=== PATIENT | female | born 1980 | race African-American/Black ===

== ENCOUNTER 2017-02-12 23:18 | Inpatient (IN) | payer OTHER ==
[2017-02-13 00:11] LABS: Basophils % (Auto) 0.3 % (0.0-1.8); Eosinophils % (Auto) 1.8 % (0.0-4.3); Hematocrit 34.9 % (30.3-42.9); Hemoglobin 11.7 gm/dl (10.1-14.3); Mean Corpuscular HGB Conc 34 % (30-34); Mean Corpuscular Hemoglobin 32 pg (28-32); Mean Corpuscular Volume 96 fl (79-97); Platelet Count 201 K/mm3 (140-440); Red Blood Count 3.65 M/mm3 (3.65-5.03); Red Cell Distribution Width 12.8 % (13.2-15.2); White Blood Count 11.7 K/mm3 (4.5-11.0)
[2017-02-13] MEDS ORDERED: ePHEDrine SULFATE IV PRN (00:27)
[2017-02-13] MEDS ORDERED: SUBLIMAZE IV PRN (00:27)
[2017-02-13] MEDS ORDERED: BRETHINE IVP PRN (00:27)
[2017-02-13] MEDS ORDERED: POLYCILLIN/NS 2 GM/100 ML 2 GM/100 ML BAG IV ONE (00:27)
[2017-02-13] MEDS ORDERED: XYLOCAINE 2% INFILTRATI ONE ×3 (00:27→16:41)
[2017-02-13] MEDS ORDERED: NARCAN 0.4 MG/1 ML IV PRN (00:27)
[2017-02-13] MEDS ORDERED: MINERAL OIL PO PRN (00:27)
[2017-02-13] MEDS ORDERED: D50W (25GM) Syringe IV PRN (00:27)
[2017-02-13] MEDS ORDERED: BRETHINE SUB-Q PRN (00:27)
[2017-02-13] MEDS ORDERED: ZOFRAN IV PRN ×2 (00:27→03:48)
[2017-02-13] MEDS ORDERED: STADOL IV PRN (00:27)
--- NOTE | 2017-02-13 00:37 | History and Physical Report ---
History of Present Illness Date of examination: 02/13/17 Date of admission: 02/12/17 23:27 Chief complaint: SROM clear fluid History of present illness: Pt is a 36 yo AF EDC 03/03/17; EGA 37 3/7 weeks presents to L&D complaining of SROM clear fluid @ 2230 followed by irregular contractions. She received care at [facility] Inpatient since 12 weeks, and course was significant for GDM for which she takes Glyburide 5mg BID. records are available but GBS is unknown. Past History Past Medical History: diabetes (GDM) Past Surgical History: other (eyes and nose) Family/Genetic History: diabetes, stroke, cancer Social history: no significant social history, - Obstetrical History Expected Date of Delivery: 03/03/17 Actual Gestation: 37 Week(s) 3 Day(s) : 3 Medications and Allergies Allergies Allergy/AdvReac Type Severity Reaction Status Date / Time No Known Allergies Allergy Verified 02/12/17 23:20 Home Medications Medication Instructions Recorded Confirmed Last Taken Type No Known Home Medications [No 02/13/17 02/13/17 Unknown History Reported Home Medications] Review of Systems All systems: negative - Vital Signs Vital signs: Vital Signs Pulse BP 113 H 140/75 02/12/17 23:38 02/12/17 23:38 Temp Pulse Resp BP Pulse Ox 97.7 F 109 H 13 125/73 97 02/12/17 23:41 02/13/17 00:30 02/12/17 23:41 02/13/17 00:09 02/13/17 00:30 - Physical Exam Breasts: Positive: deferred Cardiovascular: Regular rate Lungs: Positive: Clear to auscultation Abdomen: Positive: normal appearance Genitourinary (Female): Positive: normal external genitalia Vagina: Positive: normal moisture Uterus: Positive: enlarged Extremities: Positive: normal - Obstetrical FHR: category 1 Uterine Contraction Monitor Mode: External Cervical Dilatation: 3 Cervical Effacement Percentage: 70 station: -1 Uterine Contraction Pattern: Irregular Uterine Tone Measurement Phase: Contraction Uterine Contraction Intensity: Moderate Results Result Diagrams: 02/13/17 03:17 Abnormal lab results 02/12/17 02/12/17 Range/Units 23:50 23:56 WBC 11.7 H (4.5-11.0) K/mm3 RDW 12.8 L (13.2-15.2) % Dixon % (Auto) 8.1 H (0.0-7.3) % Dixon # 0.9 H (0.0-0.8) K/mm3 Seg Neutrophils % 70.9 H (40.0-70.0) % Seg Neutrophils # 8.3 H (1.8-7.7) K/mm3 POC Glucose 217 H (70-105) All other labs normal. Assessment and Plan - Patient Problems (1) 37 weeks gestation of Onset Date: 02/13/17 Current Visit: Yes Status: Acute Plan to address problem: A: IUP @ 37 3/7 weeks in labor Gestational Diabetes Mellitus - controlled with Glyburide 5mg BID P: Admit to L&D for expectant vaginal delivery Monitor BS's (2) GDM (gestational diabetes mellitus) Onset Date: 02/13/17 Current Visit: Yes Status: Acute Qualifiers: Gestational diabetes mellitus control: oral hypoglycemic-controlled Trimester: third trimester Qualified Code(s): O24.415 - Gestational diabetes mellitus in , controlled by oral hypoglycemic drugs (3) GDM (gestational diabetes mellitus), class A1 Current Visit: Yes Status: Acute
[2017-02-13] MEDS ORDERED: PITOCin/NS 30 UNIT/500ML 30 UNITS/500 ML BAG IV SCH ×2 (01:00)
[2017-02-13] MEDS ORDERED: LACTATED RINGERS 1,000 ML IV SCH (01:00)
[2017-02-13] MEDS ORDERED: NARCAN 2 MG/2 ML ONE (02:39)
[2017-02-13] MEDS: PITOCin/NS 20 UNIT/1000ML DRIP 20 UNITS/1,000 ML BAG IV SCH ×2 (02:51→03:55)
[2017-02-13] MEDS ORDERED: METHERGINE IM ONE (02:54)
[2017-02-13] MEDS ORDERED: CYTOTEC ONE (03:11)
[2017-02-13] MEDS ORDERED: HEMABATE IM ONE (03:18)
[2017-02-13 03:22] LABS: ISTAT Base Excess -14; ISTAT HCO3 19.5; ISTAT PH 6.893 (7.35-7.45); ISTAT PO2 12 (80-105); ISTAT SO2 5; ISTAT TCO2 23
[2017-02-13] MEDS ORDERED: PEPCID IV ONE ×2 (03:27→06:00)
[2017-02-13] MEDS ORDERED: REGLAN ONE (03:27)
[2017-02-13] MEDS ORDERED: BICITRA ONE (03:27)
[2017-02-13 03:34] LABS: Hematocrit 27.8 % (30.3-42.9); Hemoglobin 9.3 gm/dl (10.1-14.3)
--- NOTE | 2017-02-13 03:39 | Procedure Note ---
OB Delivery Note - Delivery Date of Delivery: 02/13/17 Surgeon: NATALIE HAN Estimated blood loss: other (800ml) - Vaginal Delivery presentation: vertex Delivery position: OA Intrapartum events: precipitous labor- <3hr, extend. bradycardia Delivery induction: none Delivery augmentation: rupture of membranes Delivery monitor: external FHT, external uterine Route of delivery: Delivery placenta: expressed, manual Delivery cord: 3 umbilical vessels Episiotomy: midline Delivery laceration: 2nd degree (perineal) Delivery repair: vicryl Anesthesia: local Delivery comments: delivered TORY, cord clamped and cut, and infant handed to awaiting Peds/ RT. Cord blood and cord gas obtained. No vaginal lacerations noted.. Bimanual massage performed followed IM Methergine, PV Cytotec 800mcg and IM Hemabate to achieve hemostasis. Lisa catheter and vaginal pack also placed, and STAT H/H sent. - A at 1 minute: 6 at 5 minutes: 8 Infant Gender: Male (3208gms)
[2017-02-13] MEDS ORDERED: PHENERGAN PO PRN (03:48)
[2017-02-13] MEDS ORDERED: TYLENOL PO PRN (03:48)
[2017-02-13] MEDS ORDERED: PHENERGAN PR PRN (03:48)
[2017-02-13] MEDS ORDERED: MILK OF MAGNESIA PO PRN (03:48)
[2017-02-13] MEDS ORDERED: DULCOLAX PR PRN (03:48)
[2017-02-13] MEDS ORDERED: BENADRYL PO PRN (03:48)
[2017-02-13] MEDS ORDERED: LANSINOH TP PRN (03:48)
[2017-02-13] MEDS ORDERED: TUCKS PAD TP PRN (03:48)
[2017-02-13] MEDS ORDERED: NORCO 5/325 PO PRN (03:54)
[2017-02-13] MEDS ORDERED: SODIUM CHLORIDE FLUSH SYRINGE 10 ML IV PRN ×2 (04:00→07:50)
[2017-02-13] MEDS ORDERED: NACL 0.9% 500 ML 500 ML IV ONE ×5 (04:02→11:00)
[2017-02-13] MEDS ORDERED: TYLENOL PO ONE (04:04)
[2017-02-13] MEDS ORDERED: BENADRYL IV ONE (04:04)
[2017-02-13] MEDS ORDERED: POLYCILLIN/NS 1 GM/50 ML 1 GM/50 ML BAG IV SCH (05:00)
[2017-02-13 05:14] LABS: Hematocrit 20.4 % (30.3-42.9); Hemoglobin 6.7 gm/dl (10.1-14.3)
[2017-02-13] MEDS ORDERED: NACL 0.9% 1000 ML 1,000 ML ONE ×2 (05:19→09:03)
[2017-02-13 05:25] LABS: Fibrinogen > 1500 mg/dl (211-480); INR > 17.67 (0.87-1.13); Partial Thromboplastin Time 92.6 Sec. (24.2-36.6)
[2017-02-13] MEDS ORDERED: LEVOPHED DRIP 4 MG/NS 250 ML 4 MG/250 ML BAG IV ONE (05:26)
[2017-02-13 05:33] LABS: ISTAT Base Excess < -30; ISTAT HCO3 3.3; ISTAT PCO2 21.8 (35-45); ISTAT PH 6.783 (7.35-7.45); ISTAT PO2 267 (80-105); ISTAT SO2 99; ISTAT TCO2 < 5
[2017-02-13] MEDS ORDERED: WATER FOR IRRIG STERILE IR ONE (05:35)
[2017-02-13] MEDS ORDERED: NACL 0.9% IR ONE (05:35)
[2017-02-13] MEDS ORDERED: AMIDATE IV ONE (05:36)
[2017-02-13] MEDS ORDERED: QUELICIN ONE (05:36)
[2017-02-13] MEDS ORDERED: ANCEF ONE ×2 (05:40→05:41)
[2017-02-13] MEDS ORDERED: ZEMURON IV ONE (05:40)
[2017-02-13] MEDS ORDERED: VERSED ONE (05:50)
[2017-02-13] MEDS ORDERED: REGLAN IV NR (06:00)
[2017-02-13] MEDS ORDERED: BICITRA PO ONE (06:00)
[2017-02-13] MEDS ORDERED: CYTOTEC PR ONE (06:00)
[2017-02-13] MEDS ORDERED: ePHEDrine SULFATE ONE (06:02)
[2017-02-13] MEDS ORDERED: INTROPIN DRIP 800 MG/D5W 250 ML 800 MG/250 ML BAG IV ONE (06:11)
[2017-02-13] MEDS ORDERED: NACL 0.9% 1000 ML 2,000 ML ONE (06:37)
--- NOTE | 2017-02-13 06:46 | Operative Report ---
Operative Report Operative Report: Date of procedure: 02/13/2017 Pre-operative diagnosis: 1. Status post normal spontaneous vaginal delivery 2. hemorrhage 3. Hemovolumic shock 4. Acute respiratory failure Post-operative diagnosis: Same Procedure name(s): Total abdominal hysterectomy with left salpingo-oophorectomy Surgeon: Carlos Gupta MD Polish Compounder: None Anesthesia: Gen. endotracheal intubation by Dr. Degroot EBL: 200 mL's during the surgery but approximately 2000 mls total blood loss Findings: An enlarged uterus with a large left ovarian mass. Normal right tube and ovary. Procedure: After the patient was first correctly identified and after general anesthesia was administered she was prepped and draped in usual in the usual sterile fashion and placed in the dorsolithotomy position. The skin knife was used to make a transverse skin incision. The incision was extended down to the layer of the fascia which was nicked in the midline and extended laterally using Bovie cautery. The rectus muscles were dissected off the rectus fascia both superiorly and inferiorly, the rectus bellies in the midline and the peritoneum was entered under direct visualization. Exploration of the pelvic organs found the uterus to be enlarged and the left ovary was also enlarged. The right ovary was normal, and the tubes were normal bilaterally. Next the bowels were packed back and the round ligaments were grasped clamped cut and suture ligated. The left infundibulopelvic ligament was doubly clamped cut and suture ligated, thus freeing the left enlarged ovary from the left pelvic sidewall. The right round ligament was grasped clamped cut and suture ligated, and the right utero-ovarian ligaments were doubly clamped cut and suture ligated thus freeing the right ovary from the right uterine sidewall. The uterine vessels were then skeletonized bilaterally, and the bladder flap was taken down anteriorly. The uterine vessels were then doubly clamped cut and suture ligated bilaterally, and the cardinal ligaments were sequentially clamped cut and suture ligated down to the level of the uterosacral ligaments. The cervix was then amputated from the vaginal cuff and the specimen was handed off the surgical field. The vaginal cuff was then made hemostatic using several sutures of 0 Vicryl suture in a [id number] configuration. After good hemostasis was assured copious amounts of irrigation was then performed. The Tisseel sealant was then sprayed across the vaginal cuff and the superior pedicles bilaterally and after excellent hemostasis was assured the procedure was considered complete. All instruments removed from abdomen, and the peritoneum was closed using 0 Vicryl suture in a running interlocking fashion and the rectus muscles were also loosely re-approximated using 0 Vicryl suture in a [id number] configuration. The fascia was then re-approximated using # 1 Vicryl suture in a running interlocking fashion, the subcutaneous layer made hemostatic using Bovie cautery and the skin edges re-approximated using sofia. Patient tolerated the procedure well was transported to ICU in stable condition.
[2017-02-13] MEDS ORDERED: NEO SYNEPHRINE ONE (06:58)
[2017-02-13] MEDS ORDERED: PERCOCET 5/325 PO PRN (07:50)
[2017-02-13] MEDS ORDERED: ANCEF/NS 1 GM/50 ML 1 GM/50 ML BAG IV SCH (07:50)
[2017-02-13] MEDS ORDERED: NACL 0.9% 500 ML 500 ML IV NR ×2 (08:00→15:14)
--- NOTE | 2017-02-13 08:02 | Anesthesia Consultation ---
Anesthesia Consult and Med Hx Date of service: 02/13/17 - Airway Anesthetic Teeth Evaluation: Good ROM Head & Neck: Adequate Mental/Hyoid Distance: Adequate Mallampati Class: Class II Intubation Access Assessment: Probably Good - Pulmonary Exam CTA: Yes - Cardiac Exam Cardiac Exam: RRR - Pre-Operative Health Status ASA Pre-Surgery Classification: ASA4, Emergency Proposed Anesthetic Plan: General - Pulmonary Hx Asthma: No - Cardiovascular System Hx Hypertension: No - Central Nervous System Hx Seizures: No Hx Psychiatric Problems: No - Endocrine Hx Renal Disease: No Hx Hypothyroidism: No Hx Hyperthyroidism: No - Hematic Hx Anemia: Yes Hx Sickle Cell Disease: No - Other Systems Hx Alcohol Use: No Hx Obesity: Yes - Additional Comments Anesthesia Medical History Comments: Acute respiratory failure, hypotension, Acute anemia from blood loss.
--- NOTE | 2017-02-13 08:04 | Post Anesthesia Evaluation ---
- Post Anesthesia Evaluation Patient Participated: No Airway Patent: Yes Stable Respiratory Function: Yes Nausea/Vomiting: No Temp > 96.8F: Yes Pain Manageable: Yes Anesthesia Complications: No Block Receding Appropriately: Not Applicable Patient on Ventilator: No Other Comments: Patient s/p hysterectomy with about 2-2.5 Liters of blood loss. Likely in DIC also. Transfused 6 units RBCs and 1 unit FFP as of 0800. More blood and FFP pending.
[2017-02-13] MEDS ORDERED: D5LR 1,000 ML IV SCH (08:30)
[2017-02-13] MEDS ORDERED: MORPHINE IV PRN ×2 (09:00)
[2017-02-13] MEDS ORDERED: LEVOPHED DRIP 4 MG/NS 250 ML 4 MG/250 ML BAG IV SCH (09:00)
[2017-02-13] MEDS ORDERED: INTROPIN DRIP 800 MG/D5W 250 ML 800 MG/250 ML BAG IV SCH (09:00)
[2017-02-13] MEDS ORDERED: ADRENALIN 8 MG in NACL 0.9% 250ML 242 ML IV SCH (09:00)
[2017-02-13] MEDS: Vasostrict 20 UNIT in NACL 0.9% 100 ML IV SCH ×2 (09:06→18:30)
[2017-02-13 09:18] LABS: Hematocrit 27.7 % (30.3-42.9); Hemoglobin 8.6 gm/dl (10.1-14.3); Mean Corpuscular HGB Conc 31 % (30-34); Mean Corpuscular Hemoglobin 30 pg (28-32); Mean Corpuscular Volume 99 fl (79-97); Red Blood Count 2.81 M/mm3 (3.65-5.03); Red Cell Distribution Width 15.8 % (13.2-15.2)
[2017-02-13 09:24] LABS: Albumin 1.8 g/dL (3.9-5); Albumin/Globulin Ratio 1.4 %; Alkaline Phosphatase 161 units/L (35-129); BUN/Creatinine Ratio 11; Blood Urea Nitrogen 9 mg/dL (7-17); Carbon Dioxide 10 mmol/L (22-30); Chloride 109.1 mmol/L (98-107); Glucose 367 mg/dL (65-100); Sodium 147 mmol/L (137-145); Total Protein 3.1 g/dL (6.3-8.2); White Blood Count 28.8 K/mm3 (4.5-11.0)
[2017-02-13 09:25] LABS: ISTAT Base Excess -25; ISTAT HCO3 7.3; ISTAT PCO2 36.5 (35-45); ISTAT PH 6.909 (7.35-7.45); ISTAT PO2 51 (80-105); ISTAT SO2 60; ISTAT TCO2 8
[2017-02-13 09:35] LABS: Calcium 5.9 mg/dL (8.4-10.2)
--- NOTE | 2017-02-13 09:35 | XRay Report ---
PORTABLE CHEST INDICATION: Acute respiratory failure. COMPARISON: None similar. FINDINGS: Portable, frontal chest radiograph demonstrates leftward patient rotation with normal cardiomediastinal silhouette. Endotracheal tube tip may though lie in the proximal right mainstem bronchus, approximately 2 cm past the amy. Subtle left retrocardiac density not entirely excluded. No pleural effusions or CHF. A right-sided central catheter tip presumably at or just below the cavoatrial junction, though overlies the spine. EKG leads. Intact bones. CONCLUSION: 1. Low endotracheal tube tip in the right mainstem bronchus that should be retracted approximately 5.5 cm for more optimal placement. 2. Other findings, as above. I phoned the above results to Mr. Medina, respiratory therapist, 9:25 AM, 02/13/2017. Thank you for the opportunity to participate in this patient's care.
[2017-02-13 09:45] LABS: Alanine Aminotransferase 37 units/L (7-56)
[2017-02-13 09:46] LABS: Anion Gap 32 mmol/L; Potassium 4.5 mmol/L (3.6-5.0)
[2017-02-13] MEDS ORDERED: PRENATAL VITAMIN PO SCH (10:00)
[2017-02-13 10:10] LABS: INR 3.42 (0.87-1.13)
[2017-02-13 10:12] LABS: Anisocytosis 1+; Basophils % (Manual) 0 % (0.0-1.8); Blastocytes % (Manual) 0 %; Poikilocytosis 1+
[2017-02-13 10:13] LABS: Burr Cells Few; Diff Status Complete; Platelet Count 84 K/mm3 (140-440); Platelet Estimate Consistent w Auto
[2017-02-13 10:45] LABS: Partial Thromboplastin Time 183.8 Sec. (24.2-36.6)
[2017-02-13] MEDS ORDERED: NACL 0.9% IV ONE (11:00)
[2017-02-13] MEDS ORDERED: DDAVP IV ONE ×2 (11:00→12:30)
--- NOTE | 2017-02-13 11:09 | Event Note ---
Date: 02/13/17 Consulted for placement of an lelia in a critical patient with hypotension secondary to DIC after delivery. Attempted left radial lelia under ultrasound guidance and despite visualizing the needle enter the lumen and seeing the flash of blood I was unable to advance the wire secondary to hypovolemia and severe spasm. Placed left femoral artery arterial line under ultrasound guidance without difficulty or complication.
[2017-02-13] MEDS ORDERED: SODIUM BICARBONATE IV ONE ×2 (11:21→11:47)
--- NOTE | 2017-02-13 11:32 | XRay Report ---
PORTABLE CHEST INDICATION: ET tube placement. COMPARISON: 8:44 AM earlier today. FINDINGS: Portable, frontal chest radiograph, 11:05 AM, 02/13/2017 demonstrates endotracheal tube retraction with its tip now approximately 2.3 cm above the amy. Worsening left lower lung opacity, possibly collapse/consolidation with few air bronchograms and obscured left hemidiaphragm. Clear remainder lungs. Stable remainder exam. CONCLUSION: Satisfactory interval endotracheal tube retraction with worsening left lower lung opacity/consolidation, as described. Thank you for the opportunity to participate in this patient's care.
[2017-02-13] MEDS ORDERED: DDAVP IV SCH (11:45)
[2017-02-13 11:55] LABS: ISTAT Base Excess -25; ISTAT PCO2 38.9 (35-45); ISTAT PH 6.921 (7.35-7.45); ISTAT PO2 71 (80-105); ISTAT SO2 80; ISTAT TCO2 9
[2017-02-13] MEDS ORDERED: SODIUM BICARBONATE 50 MEQ in NACL 0.9% 1000 ML 1,000 ML IV SCH (12:00)
[2017-02-13] MEDS ORDERED: ALBURX 25% (ALBUMIN) IV ONE ×3 (12:01→13:00)
--- NOTE | 2017-02-13 12:24 | Consultation ---
History of Present Illness Consult date: 02/13/17 Requesting physician: NATALIE GUPTA Reason for consult: other (Hemorrhagic shock, DIC, acute hypoxemic respiratory failure, severe metabolic acidosis, acute encephalopathy) History of present illness: History obtained from Dr. Gupta. Patient was apparently delivered of a healthy baby but had severe post hemorrhage requiring total abdominal hysterectomy with left salpingo- oophorectomy. She was transferred to the ICU in DIC and hemorrhagic shock. She continues to bleed from her surgical site. She is currently on norepinephrine, neosynephrine, doapmine, vasopressin and epinephrine at maximum doses. Remains hypotensive. Was seen by IR, unable to perform any interventions at this time Past History Social history: no significant social history, Medications and Allergies Allergies Allergy/AdvReac Type Severity Reaction Status Date / Time No Known Allergies Allergy Verified 02/12/17 23:20 Home Medications Medication Instructions Recorded Confirmed Last Taken Type No Known Home Medications [No 02/13/17 02/13/17 Unknown History Reported Home Medications] Active Meds: Active Medications Acetaminophen (Tylenol) 650 mg PO Q4H PRN PRN Reason: Pain MILD(1-3)/Fever >100.5/LYLES Albumin Human (Buminate-5) 25 gm IV ONCE LOUIS Stop: 02/14/17 13:01 Albumin Human (Alburx 25% (Albumin)) 25 gm IV ONCE ONE Stop: 02/13/17 12:31 Albumin Human (Alburx 25% (Albumin)) 25 gm IV ONCE ONE Stop: 02/13/17 13:01 Bisacodyl (Dulcolax) 10 mg OH BID PRN PRN Reason: Constipation Desmopressin Acetate (Ddavp) 2 mcg IV ONCE ONE Stop: 02/13/17 12:31 Last Admin: 02/13/17 11:56 Dose: 2 mcg Dextrose (D50w (25gm) Syringe) 50 ml IV PRN PRN PRN Reason: Hypoglycemia Diphenhydramine HCl (Benadryl) 25 mg PO Q6H PRN PRN Reason: Itching Diphtheria/Tetanus/Acell Pertussis (Boostrix) 0.5 ml IM .ONCE ONE Stop: 02/14/17 06:01 Docusate Sodium (Colace) 100 mg PO BID LOUIS Ferrous Sulfate (Feosol) 325 mg PO BID LOUIS Dextrose/Lactated Ringer's (D5lr) 1,000 mls @ 150 mls/hr IV DIRECT LOUIS Phenylephrine HCl 100 mg/ (Sodium Chloride) 100 mls @ 3 mls/hr IV TITR LOUIS; 50 MCG/MIN PRN Reason: Protocol Dopamine HCl/Dextrose (Intropin Drip 800 Mg/D5w 250 Ml) 800 mg in 250 mls @ 2.381 mls/hr IV TITR LOUIS; 2 MCG/KG/MIN PRN Reason: Protocol Norepinephrine (Levophed Drip 4 Mg/Ns 250 Ml) 4 mg in 250 mls @ 7.5 mls/hr IV TITR LOUIS; 2 MCG/MIN PRN Reason: Protocol Vasopressin 20 unit/ Sodium (Chloride) 101 mls @ 9.09 mls/hr IV TITR LOUIS; 0.03 UNITS/MIN PRN Reason: Protocol Last Admin: 02/13/17 09:06 Dose: 0.03 units/min, 9.09 mls/hr Epinephrine 8 mg/ Sodium (Chloride) 250 mls @ 3.75 mls/hr IV TITR LOUIS; 2 MCG/ MIN PRN Reason: Protocol Cefazolin Sodium 1 gm/ Sodium (Chloride) 20 mls @ 20 mls/10 min IV Q8H LOUIS Stop: 02/13/17 23:09 Norepinephrine 8 mg/ Sodium (Chloride) 250 mls @ 3.75 mls/hr IV TITR LOUIS; 2 MCG /MIN PRN Reason: Protocol Sodium Bicarbonate 150 meq/ (Dextrose) 1,150 mls @ 250 mls/hr IV DIRECT LOUIS Ibuprofen (Motrin) 600 mg PO Q6HR LOUIS Insulin Human Regular (Novolin R) 0 units SUB-Q Q6HR LOUIS PRN Reason: Protocol Last Admin: 02/13/17 01:00 Dose: 3 units Ketorolac Tromethamine (Toradol) 30 mg IV Q6H LOUIS Stop: 02/18/17 08:59 Magnesium Hydroxide (Milk Of Magnesia) 30 ml PO HS PRN PRN Reason: Constipation Measles/Mumps/Rubella Vaccine Live (M-M-R Ii Vaccine) 0.5 ml SUB-Q .ONCE ONE Stop: 02/14/17 03:55 Methylergonovine Maleate (Methergine) 0.2 mg PO Q8HR LOUIS Morphine Sulfate (Morphine) 4 mg IV Q4H PRN PRN Reason: Pain , Severe (7-10) Morphine Sulfate (Morphine) 2 mg IV Q4H PRN PRN Reason: Pain, Moderate (4-6) Multi-Ingredient Ointment (Lansinoh) 1 applic TP PRN PRN PRN Reason: Sore Nipples Multivitamins/Iron/Calcium ( Vitamin) 1 each PO QDAY LOUIS Naloxone HCl (Narcan 0.4 Mg/1 Ml) 0.1 mg IV Q2MIN PRN PRN Reason: Res Rate </= 8 or 02 SAT < 92% Ondansetron HCl (Zofran) 4 mg IV Q8H PRN PRN Reason: Nausea And Vomiting Oxycodone/Acetaminophen (Percocet 5/325) 2 tab PO Q6H PRN PRN Reason: Pain, Moderate (4-6) Promethazine HCl (Phenergan) 25 mg OH Q6H PRN PRN Reason: Nausea And Vomiting Promethazine HCl (Phenergan) 25 mg PO Q6H PRN PRN Reason: Nausea And Vomiting Sodium Chloride (Sodium Chloride Flush Syringe 10 Ml) 10 ml IV PRN PRN PRN Reason: LINE FLUSH Witch Lashonda/Glycerin (Tucks Pad) 1 each TP PRN PRN PRN Reason: Hemorrhoid/cleansing/soothing Review of Systems ROS unobtainable: due to endotracheal tube, due to mental status Physical Examination Vital signs: Vital Signs Pulse BP 113 H 140/75 02/12/17 23:38 02/12/17 23:38 General appearance: comatose Eyes: other (facial edema) ENT: oropharynx moist Neck: supple, no JVD Effort: mildly labored Ascultation: Bilateral: other (coarse breath sounds with rhonchi) Cardiovascular: other (tachycardia, ) Gastrointestinal: absent bowel sounds, other (distended, bleeding around the surgical site, sofia in place) Integumentary: other (oozing ) other (unresponsive) other (unable to obtain) Results - Laboratory Findings CBC and BMP: 02/14/17 15:15 02/14/17 05:20 ABG POC ABG pH 6.921 (7.35-7.45) L 02/13/17 11:17 POC ABG pCO2 38.9 (35-45) 02/13/17 11:17 POC ABG pO2 71 (80-105) L 02/13/17 11:17 POC ABG HCO3 8.0 02/13/17 11:17 POC ABG Total CO2 9 02/13/17 11:17 POC ABG O2 Sat 80 02/13/17 11:17 PT/INR, D-dimer PT 36.6 Sec. (12.2-14.9) H 02/13/17 08:30 INR 3.42 (0.87-1.13) H 02/13/17 08:30 Abnormal lab findings: Abnormal Labs 02/12/17 02/12/17 02/12/17 23:50 23:50 23:56 WBC 11.7 H RBC Hgb Hct MCV RDW 12.8 L Plt Count Rooks % (Auto) 8.1 H Rooks # 0.9 H Seg Neutrophils % 70.9 H Nucleated RBC % Seg Neutrophils # 8.3 H Seg Neutrophils # Man Lymphocytes # (Manual) Monocytes # (Manual) PT INR APTT Fibrinogen POC ABG pH POC ABG pCO2 POC ABG pO2 Sodium Chloride Carbon Dioxide Glucose POC Glucose 217 H Calcium Total Bilirubin AST Alkaline Phosphatase Total Protein Albumin Crossmatch See Detail 02/13/17 02/13/17 02/13/17 03:05 03:17 04:30 WBC RBC Hgb 9.3 L Hct 27.8 L D MCV RDW Plt Count Rooks % (Auto) Rooks # Seg Neutrophils % Nucleated RBC % Seg Neutrophils # Seg Neutrophils # Man Lymphocytes # (Manual) Monocytes # (Manual) PT < 10.0 L INR > 17.67 H* APTT 92.6 H* Fibrinogen > 1500 H POC ABG pH 6.893 L POC ABG pCO2 101.0 H POC ABG pO2 12 L Sodium Chloride Carbon Dioxide Glucose POC Glucose Calcium Total Bilirubin AST Alkaline Phosphatase Total Protein Albumin Crossmatch 02/13/17 02/13/17 02/13/17 04:55 05:13 08:30 WBC 28.8 H RBC 2.81 L Hgb 6.7 L 8.6 L Hct 20.4 L D 27.7 L D MCV 99 H RDW 15.8 H Plt Count 84 L Rooks % (Auto) Rooks # Seg Neutrophils % Nucleated RBC % 4.0 H Seg Neutrophils # Seg Neutrophils # Man 11.5 H Lymphocytes # (Manual) 5.8 H Monocytes # (Manual) 1.4 H PT INR APTT Fibrinogen POC ABG pH 6.783 L POC ABG pCO2 21.8 L POC ABG pO2 267 H Sodium Chloride Carbon Dioxide Glucose POC Glucose Calcium Total Bilirubin AST Alkaline Phosphatase Total Protein Albumin Crossmatch 02/13/17 02/13/17 02/13/17 08:30 08:30 09:20 WBC RBC Hgb Hct MCV RDW Plt Count Rooks % (Auto) Rooks # Seg Neutrophils % Nucleated RBC % Seg Neutrophils # Seg Neutrophils # Man Lymphocytes # (Manual) Monocytes # (Manual) PT 36.6 H INR 3.42 H APTT 183.8 H* Fibrinogen 60 L* POC ABG pH 6.909 L POC ABG pCO2 POC ABG pO2 51 L Sodium 147 H Chloride 109.1 H Carbon Dioxide 10 L Glucose 367 H POC Glucose Calcium 5.9 L* Total Bilirubin 1.30 H AST 92 H Alkaline Phosphatase 161 H Total Protein 3.1 L Albumin 1.8 L Crossmatch 02/13/17 11:17 WBC RBC Hgb Hct MCV RDW Plt Count Rooks % (Auto) Rooks # Seg Neutrophils % Nucleated RBC % Seg Neutrophils # Seg Neutrophils # Man Lymphocytes # (Manual) Monocytes # (Manual) PT INR APTT Fibrinogen POC ABG pH 6.921 L POC ABG pCO2 POC ABG pO2 71 L Sodium Chloride Carbon Dioxide Glucose POC Glucose Calcium Total Bilirubin AST Alkaline Phosphatase Total Protein Albumin Crossmatch - Diagnostic Findings Chest x-ray: image reviewed Assessment and Plan - Patient Problems (1) Acute respiratory failure with hypoxemia Current Visit: Yes Status: Acute (2) Postoperative hemorrhagic shock Current Visit: Yes Status: Acute (3) Hemorrhagic shock Current Visit: Yes Status: Acute Plan to address problem: Transfuse and monitor for complications associated with massive transfusiions. Currently limited, unable to give a 1:1:1 replacement for blood and clotting factors. wean vasopressors as able Discussed with IR/Vascular re embolization (4) Disseminated intra-vascular coagulation Current Visit: Yes Status: Acute Plan to address problem: Continue with supportive transfusions Hematology consult (5) Diabetes mellitus with hyperglycemia Current Visit: Yes Status: Acute Plan to address problem: Accuchecks with low dose sliding scale insulin therapy (6) Metabolic acidosis with increased anion gap and accumulation of organic acids Current Visit: Yes Status: Acute Plan to address problem: Adjust minute ventilation on mechanical ventilatory support for better gas exchange Bicarbonate infusions/replacement (7) Encephalopathy acute Current Visit: Yes Status: Acute (8) Acute renal failure after delivery, delivered w/ condition Current Visit: Yes Status: Acute Plan to address problem: Renal consult placed. Patient will need CVVHD (9) Discharge planning issues Current Visit: Yes Status: Acute Plan to address problem: Extensive discussions with the through the language line the critical nature of her illness. We will continue to treat her aggressively and replpace blood products. Has received ddAVP ED Critical Care Note - Critical Care Note Total Time (mins): 120 Critical care time in (mins) excluding proc time.: 120 Critical care attestation.: If time is entered above; I have spent that time in minutes in the direct care of this critically ill patient, excluding procedure time. Spent time on the language line and discussed the prognosis with the . Updated him on care plan
[2017-02-13] MEDS: NEO-SYNEPHRINE 100 MG in NACL 0.9% 90 ML IV SCH (12:30)
[2017-02-13] MEDS: SODIUM BICARBONATE 150 MEQ in D5W 1,000 ML IV SCH ×3 (12:32→22:32)
[2017-02-13] MEDS: LEVOPHED 8 MG in NACL 0.9% 250ML 242 ML IV SCH ×3 (12:34→23:37)
[2017-02-13] MEDS: BUMINATE-5 IV SCH ×2 (12:42→13:17)
[2017-02-13] MEDS ORDERED: SODIUM BICARBONATE IV SCH (13:30)
[2017-02-13] MEDS ORDERED: NACL 0.9% 250ML 250 ML ONE (14:19)
[2017-02-13 14:30] LABS: ISTAT Base Excess -9; ISTAT HCO3 15.8; ISTAT PCO2 27.3 (35-45); ISTAT PH 7.372 (7.35-7.45); ISTAT PO2 427 (80-105); ISTAT SO2 100; ISTAT TCO2 17
[2017-02-13] MEDS: ceFAZolin 1 GM in NACL 0.9% 20 ML IV SCH ×2 (14:30→22:24)
[2017-02-13 14:43] LABS: Mean Corpuscular HGB Conc 34 % (30-34); Mean Corpuscular Hemoglobin 31 pg (28-32); Mean Corpuscular Volume 91 fl (79-97); Red Blood Count 1.18 M/mm3 (3.65-5.03); Red Cell Distribution Width 15.8 % (13.2-15.2); White Blood Count 6.6 K/mm3 (4.5-11.0)
[2017-02-13 14:45] LABS: Hemoglobin 3.6 gm/dl (10.1-14.3)
[2017-02-13 14:46] LABS: Hematocrit 10.8 % (30.3-42.9); Platelet Count 14 K/mm3 (140-440)
[2017-02-13 15:01] LABS: Albumin 2.8 g/dL (3.9-5); Chloride 103.4 mmol/L (98-107); Potassium 3.8 mmol/L (3.6-5.0); Total Protein 3.2 g/dL (6.3-8.2)
[2017-02-13 15:06] LABS: INR 6.03 (0.87-1.13); Partial Thromboplastin Time > 240.0 Sec. (24.2-36.6)
[2017-02-13 15:29] LABS: Basophils % (Manual) 0 % (0.0-1.8); Blastocytes % (Manual) 0 %; Eosinophils % (Manual) 0 % (0.0-4.3)
[2017-02-13 15:30] LABS: Anisocytosis 1+; Diff Status Complete; Hypochromasia 1+; Platelet Estimate Consistent w Auto; Poikilocytosis 1+
[2017-02-13] MEDS ORDERED: HEPARIN/NS 5000 UNIT/500ML(CATH LAB) 500 ML IR ONE (16:39)
[2017-02-13] MEDS ORDERED: NACL 0.9% 500 ML IR ONE (17:08)
[2017-02-13] MEDS ORDERED: GELFOAM TP ONE (17:11)
[2017-02-13] MEDS ORDERED: CALAN ONE (17:22)
[2017-02-13] MEDS ORDERED: HEPARIN 10,000 UNITS/10 ML ONE (17:22)
[2017-02-13] MEDS: METHERGINE PO SCH ×2 (17:38→21:24)
[2017-02-13] MEDS: TORADOL IV SCH ×2 (17:40→20:11)
--- NOTE | 2017-02-13 17:40 | Operative Report ---
Operative Report Operative Report: EXAM: BILATERAL INTERNAL ILIAC ARTERY EMBOLIZATION CLINICAL INDICATION: PATIENT WITH A HISTORY OF A HYSTERECTOMY WITH PERSISTENT BLEEDING AND DIC DATE: 02/13/2017 PROCEDURE: Following an expiration of the risks, benefits and alternatives to the level language line to the patient's next of kin, written informed consent was then obtained. The patient was brought to the angiographic suite and placed in supine position on the examination table. Initial ultrasound evaluation of the left wrist demonstrated a patent left radial artery. The patient's left wrist was prepped and draped in the usual sterile fashion. 1% lidocaine was used for anesthesia. Under ultrasound guidance, the left radial artery was cannulated with a 3-1/2 cm 21-gauge needle. A 0.018 guidewire was advanced centrally. The needle was removed and a 5 [place] low-profile sheath placed over the guidewire. A 5 [place] vertebral catheter and 0.035 Glidewire within manipulated centrally under fluoroscopy. Together the guidewire and catheter were manipulated into the descending thoracic aorta and into the abdominal aorta. Angiography was performed the distal abdominal aorta for anatomic localization and the origin of the left common iliac artery was identified. Selective cannulation of the left iliac was performed. Contrast was injected which demonstrated diffuse spasm involving the left external iliac artery and left internal iliac artery. No significant visualization of the anterior division was identified. The catheter was advanced into the left internal iliac artery over the guidewire and angiography performed. This demonstrated several saccular areas may represent pseudoaneurysms versus non-spasmed vessel. With the catheter tip positioned just proximal to these areas within the internal iliac artery, Gelfoam embolization to stasis was performed in the left internal iliac artery. The catheter was then withdrawn proximally to the distal abdominal aorta and angiography performed to identify the origin of the right common iliac artery. Selective cannulation of the right common iliac artery was performed of the guidewire and additional angiography performed for anatomic localization. The origin of the right internal iliac artery was identified. Selective cannulation of the right internal iliac artery was then performed. Again noted is diffuse arterial spasm throughout both the external iliac artery and internal iliac artery on the right with nonvisualization of the pelvic branches were the anterior division. With the catheter positioned just proximal to the several areas of saccular dilatation, Gelfoam embolization was performed to arterial stasis in the right internal iliac artery. The catheter was then withdrawn into the abdominal aorta and additional imaging obtained of the entire pelvis. No significant collateral filling of the pelvic vessels was identified. The catheter was then removed. The sheath was removed and hemostasis achieved using manual compression and a pressure dressing. A sterile dressing was then applied. The patient tolerated the procedure well. There were no immediate post procedure competitions. Sedation was not utilize secondary to patient's obtunded status. Continuous cardiopulmonary monitoring was utilized. IMPRESSION: 1) Bilateral internal iliac artery embolization. 2) Significant arterial spasm with non-opacification of the anterior division of bilateral internal iliac arteries.
[2017-02-13] MEDS: FEOSOL PO SCH ×2 (17:41→21:24)
[2017-02-13] MEDS: COLACE PO SCH ×2 (17:41→21:24)
[2017-02-13] MEDS: MOTRIN PO SCH (17:51)
[2017-02-13] MEDS ORDERED: NITROGLYCERIN SYRINGE 3 ML ONE (17:56)
[2017-02-13] MEDS ORDERED: ADRENALIN ONE (19:13)
[2017-02-13] MEDS ORDERED: BUMINATE-5 IV STA (19:23)
[2017-02-13] MEDS ORDERED: VITAMIN K (ADULT ONLY) 10 MG in NACL 0.9% 50 ML IV ONE (19:30)
[2017-02-13] MEDS ORDERED: CALCIUM GLUCONATE 2,000 MG in NACL 0.9% 100 ML IV ONE (20:00)
--- NOTE | 2017-02-13 21:21 | Consultation ---
History of Present Illness - Reason for Consult Consult date: 02/13/17 Medical management Requesting physician: KIARRA BAER - History of Present Illness [place] Patient intubated-history obtained from Dr Gupta , chart and Nursing staff Patient was apparently delivered of a healthy baby but had severe post hemorrhage requiring total abdominal hysterectomy with left salpingo- oophorectomy. She was transferred to the ICU in DIC and hemorrhagic shock. She continues to bleed from her surgical site. She is currently on norepinephrine, neosynephrine, doapmine, vasopressin and epinephrine at maximum doses. Remains hypotensive. Was seen by IR--Uterine embolization done in [employer]. Past History Social history: no significant social history, Medications and Allergies Allergies Allergy/AdvReac Type Severity Reaction Status Date / Time No Known Allergies Allergy Verified 02/12/17 23:20 Home Medications Medication Instructions Recorded Confirmed Last Taken Type No Known Home Medications [No 02/13/17 02/13/17 Unknown History Reported Home Medications] Active Meds: Active Medications Acetaminophen (Tylenol) 650 mg PO Q4H PRN PRN Reason: Pain MILD(1-3)/Fever >100.5/LYLES Albumin Human (Buminate-5) 25 gm IV ONCE [place] Stop: 02/14/17 13:01 Last Admin: 02/13/17 13:17 Dose: 25 gm Bisacodyl (Dulcolax) 10 mg WV BID PRN PRN Reason: Constipation Dextrose (D50w (25gm) Syringe) 50 ml IV PRN PRN PRN Reason: Hypoglycemia Diphenhydramine HCl (Benadryl) 25 mg PO Q6H PRN PRN Reason: Itching Diphtheria/Tetanus/Acell Pertussis (Boostrix) 0.5 ml IM .ONCE ONE Stop: 02/14/17 06:01 Docusate Sodium (Colace) 100 mg PO BID [place] Last Admin: 02/13/17 17:41 Dose: Not Given Ferrous Sulfate (Feosol) 325 mg PO BID [place] Last Admin: 02/13/17 17:41 Dose: Not Given Dextrose/Lactated Ringer's (D5lr) 1,000 mls @ 150 mls/hr IV DIRECT [place] Phenylephrine HCl 100 mg/ (Sodium Chloride) 100 mls @ 3 mls/hr IV TITR [place]; 50 MCG/MIN PRN Reason: Protocol Last Titration: 02/13/17 18:25 Dose: 100 mcg/min, 6 mls/hr Dopamine HCl/Dextrose (Intropin Drip 800 Mg/D5w 250 Ml) 800 mg in 250 mls @ 2.381 mls/hr IV TITR L[place]IS; 2 MCG/KG/MIN PRN Reason: Protocol Last Titration: 02/13/17 13:10 Dose: 0 mcg/kg/min, 0 mls/hr Vasopressin 20 unit/ Sodium (Chloride) 101 mls @ 9.09 mls/hr IV TITR [place]; 0.03 UNITS/MIN PRN Reason: Protocol Last Admin: 02/13/17 18:30 Dose: 0.03 units/min, 9.09 mls/hr Epinephrine 8 mg/ Sodium (Chloride) 250 mls @ 3.75 mls/hr IV TITR [place]; 2 MCG/ MIN PRN Reason: Protocol Cefazolin Sodium 1 gm/ Sodium (Chloride) 20 mls @ 20 mls/10 min IV Q8H [place] Stop: 02/13/17 23:09 Last Admin: 02/13/17 14:30 Dose: 20 mls/10 min Norepinephrine 8 mg/ Sodium (Chloride) 250 mls @ 3.75 mls/hr IV TITR [place]; 2 MCG /MIN PRN Reason: Protocol Last Admin: 02/13/17 19:33 Dose: 30 mcg/min, 56.25 mls/hr Sodium Bicarbonate 150 meq/ (Dextrose) 1,150 mls @ 250 mls/hr IV DIRECT [place] Last Admin: 02/13/17 18:00 Dose: 250 mls/hr Sodium Chloride (Nacl 0.9% 500 Ml) 500 mls @ 0 mls/hr IV ONCE NR PRN Reason: As Directed Stop: 02/13/17 23:59 Ibuprofen (Motrin) 600 mg PO Q6HR [place] Last Admin: 02/13/17 17:51 Dose: Not Given Insulin Human Regular (Novolin R) 0 units SUB-Q Q4HR [place] PRN Reason: Protocol Last Admin: 02/13/17 18:58 Dose: 10 units Ketorolac Tromethamine (Toradol) 30 mg IV Q6H [place] Stop: 02/18/17 08:59 Last Admin: 02/13/17 20:11 Dose: Not Given Magnesium Hydroxide (Milk Of Magnesia) 30 ml PO HS PRN PRN Reason: Constipation Measles/Mumps/Rubella Vaccine Live (M-M-R Ii Vaccine) 0.5 ml SUB-Q .ONCE ONE Stop: 02/14/17 03:55 Methylergonovine Maleate (Methergine) 0.2 mg PO Q8HR [facility] Last Admin: 02/13/17 17:38 Dose: Not Given Metoclopramide HCl (Reglan) 10 mg IV PREOP NR Stop: 02/13/17 23:59 Morphine Sulfate (Morphine) 4 mg IV Q4H PRN PRN Reason: Pain , Severe (7-10) Morphine Sulfate (Morphine) 2 mg IV Q4H PRN PRN Reason: Pain, Moderate (4-6) Multi-Ingredient Ointment (Lansinoh) 1 applic TP PRN PRN PRN Reason: Sore Nipples Multivitamins/Iron/Calcium ( Vitamin) 1 each PO QDAY [facility] Last Admin: 02/13/17 17:41 Dose: Not Given Naloxone HCl (Narcan 0.4 Mg/1 Ml) 0.1 mg IV Q2MIN PRN PRN Reason: Res Rate </= 8 or 02 SAT < 92% Ondansetron HCl (Zofran) 4 mg IV Q8H PRN PRN Reason: Nausea And Vomiting Oxycodone/Acetaminophen (Percocet 5/325) 2 tab PO Q6H PRN PRN Reason: Pain, Moderate (4-6) Promethazine HCl (Phenergan) 25 mg WV Q6H PRN PRN Reason: Nausea And Vomiting Promethazine HCl (Phenergan) 25 mg PO Q6H PRN PRN Reason: Nausea And Vomiting Sodium Chloride (Sodium Chloride Flush Syringe 10 Ml) 10 ml IV PRN PRN PRN Reason: LINE FLUSH Witch [place]ash[place]/Glycerin (Tucks Pad) 1 each TP PRN PRN PRN Reason: Hemorrhoid/cleansing/soothing Review of Systems All systems: negative Ears, nose, mouth and throat: deferred, other (intubated) Cardiovascular: no chest pain, no orthopnea Respiratory: no cough, no cough with sputum Gastrointestinal: abdominal pain Genitourinary Female: abnormal vaginal bleeding Musculoskeletal: no neck stiffness, no neck pain Integumentary: deferred Exam - Physical Exam Narrative exam: Patient intubated unresponsive on Vent support - Constitutional Vitals: Temp Pulse Resp BP Pulse Ox 96.0 F L 129 H 30 H 116/83 100 02/13/17 19:56 02/13/17 20:46 02/13/17 20:46 02/13/17 20:46 02/13/17 19:57 General appearance: Present: mild distress, severe distress, well-nourished - EENT Eyes: Present: PERRL ENT: hearing intact, clear oral mucosa - Neck Neck: Present: supple, normal ROM - Respiratory Respiratory effort: normal Respiratory: bilateral: rhonchi - Cardiovascular Heart rate: 100 Rhythm: regular Heart Sounds: Present: S1 & S2. Absent: rub, click - Extremities Extremities: no ischemia, pulses intact, pulses symmetrical, No edema Peripheral Pulses: within normal limits - Abdominal General gastrointestinal: Present: soft, distended, normal bowel sounds Female genitourinary: Present: normal - Rectal Rectal Exam: deferred - Integumentary Integumentary: Present: clear, warm, dry - Musculoskeletal Musculoskeletal: generalized weakness, other - Neurologic Neurologic: other (Intubated and sedated-PIECE JOBBER exam could not be done) - Allied Health Allied health notes reviewed: nursing, case management Results - Labs CBC & Chem 7: 02/13/17 14:15 02/13/17 14:15 Labs: Abnormal lab results 02/12/17 02/12/17 02/12/17 Range/Units 23:50 23:50 23:56 WBC 11.7 H (4.5-11.0) K/mm3 RBC (3.65-5.03) M/mm3 Hgb (10.1-14.3) gm/dl Hct (30.3-42.9) % MCV (79-97) fl RDW 12.8 L (13.2-15.2) % Plt Count (140-440) K/mm3 Kimble % (Auto) 8.1 H (0.0-7.3) % Kimble # 0.9 H (0.0-0.8) K/mm3 Seg Neutrophils % 70.9 H (40.0-70.0) % Nucleated RBC % (0.0-0.9) % Seg Neutrophils # 8.3 H (1.8-7.7) K/mm3 Seg Neutrophils # Man (1.8-7.7) K/mm3 Lymphocytes # (Manual) (1.2-5.4) K/mm3 Monocytes # (Manual) (0.0-0.8) K/mm3 PT (12.2-14.9) Sec. INR (0.87-1.13) APTT (24.2-36.6) Sec. Fibrinogen (211-480) mg/dl POC ABG pH (7.35-7.45) POC ABG pCO2 (35-45) POC ABG pO2 (80-105) Sodium (137-145) mmol/L Chloride (98-107) mmol/L Carbon Dioxide (22-30) mmol/L Glucose (65-100) mg/dL POC Glucose 217 H (70-105) Calcium (8.4-10.2) mg/dL Total Bilirubin (0.1-1.2) mg/dL AST (5-40) units/L Alkaline Phosphatase (35-129) units/L Total Protein (6.3-8.2) g/dL Albumin (3.9-5) g/dL Crossmatch See Detail 02/13/17 02/13/17 02/13/17 Range/Units 03:05 03:17 04:30 WBC (4.5-11.0) K/mm3 RBC (3.65-5.03) M/mm3 Hgb 9.3 L (10.1-14.3) gm/dl Hct 27.8 L D (30.3-42.9) % MCV (79-97) fl RDW (13.2-15.2) % Plt Count (140-440) K/mm3 Kimble % (Auto) (0.0-7.3) % Kimble # (0.0-0.8) K/mm3 Seg Neutrophils % (40.0-70.0) % Nucleated RBC % (0.0-0.9) % Seg Neutrophils # (1.8-7.7) K/mm3 Seg Neutrophils # Man (1.8-7.7) K/mm3 Lymphocytes # (Manual) (1.2-5.4) K/mm3 Monocytes # (Manual) (0.0-0.8) K/mm3 PT < 10.0 L (12.2-14.9) Sec. INR > 17.67 H* (0.87-1.13) APTT 92.6 H* (24.2-36.6) Sec. Fibrinogen > 1500 H (211-480) mg/dl POC ABG pH 6.893 L (7.35-7.45) POC ABG pCO2 101.0 H (35-45) POC ABG pO2 12 L (80-105) Sodium (137-145) mmol/L Chloride (98-107) mmol/L Carbon Dioxide (22-30) mmol/L Glucose (65-100) mg/dL POC Glucose (70-105) Calcium (8.4-10.2) mg/dL Total Bilirubin (0.1-1.2) mg/dL AST (5-40) units/L Alkaline Phosphatase (35-129) units/L Total Protein (6.3-8.2) g/dL Albumin (3.9-5) g/dL Crossmatch 02/13/17 02/13/17 02/13/17 Range/Units 04:55 05:13 08:30 WBC 28.8 H (4.5-11.0) K/mm3 RBC 2.81 L (3.65-5.03) M/mm3 Hgb 6.7 L 8.6 L (10.1-14.3) gm/dl Hct 20.4 L D 27.7 L D (30.3-42.9) % MCV 99 H (79-97) fl RDW 15.8 H (13.2-15.2) % Plt Count 84 L (140-440) K/mm3 Kimble % (Auto) (0.0-7.3) % Kimble # (0.0-0.8) K/mm3 Seg Neutrophils % (40.0-70.0) % Nucleated RBC % 4.0 H (0.0-0.9) % Seg Neutrophils # (1.8-7.7) K/mm3 Seg Neutrophils # Man 11.5 H (1.8-7.7) K/mm3 Lymphocytes # (Manual) 5.8 H (1.2-5.4) K/mm3 Monocytes # (Manual) 1.4 H (0.0-0.8) K/mm3 PT (12.2-14.9) Sec. INR (0.87-1.13) APTT (24.2-36.6) Sec. Fibrinogen (211-480) mg/dl POC ABG pH 6.783 L (7.35-7.45) POC ABG pCO2 21.8 L (35-45) POC ABG pO2 267 H (80-105) Sodium (137-145) mmol/L Chloride (98-107) mmol/L Carbon Dioxide (22-30) mmol/L Glucose (65-100) mg/dL POC Glucose (70-105) Calcium (8.4-10.2) mg/dL Total Bilirubin (0.1-1.2) mg/dL AST (5-40) units/L Alkaline Phosphatase (35-129) units/L Total Protein (6.3-8.2) g/dL Albumin (3.9-5) g/dL Crossmatch 02/13/17 02/13/17 02/13/17 Range/Units 08:30 08:30 09:20 WBC (4.5-11.0) K/mm3 RBC (3.65-5.03) M/mm3 Hgb (10.1-14.3) gm/dl Hct (30.3-42.9) % MCV (79-97) fl RDW (13.2-15.2) % Plt Count (140-440) K/mm3 Kimble % (Auto) (0.0-7.3) % Kimble # (0.0-0.8) K/mm3 Seg Neutrophils % (40.0-70.0) % Nucleated RBC % (0.0-0.9) % Seg Neutrophils # (1.8-7.7) K/mm3 Seg Neutrophils # Man (1.8-7.7) K/mm3 Lymphocytes # (Manual) (1.2-5.4) K/mm3 Monocytes # (Manual) (0.0-0.8) K/mm3 PT 36.6 H (12.2-14.9) Sec. INR 3.42 H (0.87-1.13) APTT 183.8 H* (24.2-36.6) Sec. Fibrinogen 60 L* (211-480) mg/dl POC ABG pH 6.909 L (7.35-7.45) POC ABG pCO2 (35-45) POC ABG pO2 51 L (80-105) Sodium 147 H (137-145) mmol/L Chloride 109.1 H (98-107) mmol/L Carbon Dioxide 10 L (22-30) mmol/L Glucose 367 H (65-100) mg/dL POC Glucose (70-105) Calcium 5.9 L* (8.4-10.2) mg/dL Total Bilirubin 1.30 H (0.1-1.2) mg/dL AST 92 H (5-40) units/L Alkaline Phosphatase 161 H (35-129) units/L Total Protein 3.1 L (6.3-8.2) g/dL Albumin 1.8 L (3.9-5) g/dL Crossmatch 02/13/17 02/13/17 02/13/17 Range/Units 11:17 14:15 14:15 WBC (4.5-11.0) K/mm3 RBC 1.18 L (3.65-5.03) M/mm3 Hgb 3.6 L* D (10.1-14.3) gm/dl Hct 10.8 L* D (30.3-42.9) % MCV (79-97) fl RDW 15.8 H (13.2-15.2) % Plt Count 14 L* (140-440) K/mm3 Kimble % (Auto) (0.0-7.3) % Kimble # (0.0-0.8) K/mm3 Seg Neutrophils % (40.0-70.0) % Nucleated RBC % 9.0 H (0.0-0.9) % Seg Neutrophils # (1.8-7.7) K/mm3 Seg Neutrophils # Man (1.8-7.7) K/mm3 Lymphocytes # (Manual) 1.0 L (1.2-5.4) K/mm3 Monocytes # (Manual) (0.0-0.8) K/mm3 PT 57.7 H (12.2-14.9) Sec. INR 6.03 H* (0.87-1.13) APTT > 240.0 H* (24.2-36.6) Sec. Fibrinogen (211-480) mg/dl POC ABG pH 6.921 L (7.35-7.45) POC ABG pCO2 (35-45) POC ABG pO2 71 L (80-105) Sodium (137-145) mmol/L Chloride (98-107) mmol/L Carbon Dioxide (22-30) mmol/L Glucose (65-100) mg/dL POC Glucose (70-105) Calcium (8.4-10.2) mg/dL Total Bilirubin (0.1-1.2) mg/dL AST (5-40) units/L Alkaline Phosphatase (35-129) units/L Total Protein (6.3-8.2) g/dL Albumin (3.9-5) g/dL Crossmatch 02/13/17 02/13/17 Range/Units 14:15 14:29 WBC (4.5-11.0) K/mm3 RBC (3.65-5.03) M/mm3 Hgb (10.1-14.3) gm/dl Hct (30.3-42.9) % MCV (79-97) fl RDW (13.2-15.2) % Plt Count (140-440) K/mm3 Kimble % (Auto) (0.0-7.3) % Kimble # (0.0-0.8) K/mm3 Seg Neutrophils % (40.0-70.0) % Nucleated RBC % (0.0-0.9) % Seg Neutrophils # (1.8-7.7) K/mm3 Seg Neutrophils # Man (1.8-7.7) K/mm3 Lymphocytes # (Manual) (1.2-5.4) K/mm3 Monocytes # (Manual) (0.0-0.8) K/mm3 PT (12.2-14.9) Sec. INR (0.87-1.13) APTT (24.2-36.6) Sec. Fibrinogen (211-480) mg/dl POC ABG pH (7.35-7.45) POC ABG pCO2 27.3 L (35-45) POC ABG pO2 427 H (80-105) Sodium 153 H (137-145) mmol/L Chloride (98-107) mmol/L Carbon Dioxide 14 L (22-30) mmol/L Glucose 403 H (65-100) mg/dL POC Glucose (70-105) Calcium 5.0 L* D (8.4-10.2) mg/dL Total Bilirubin 2.00 H (0.1-1.2) mg/dL AST 95 H (5-40) units/L Alkaline Phosphatase (35-129) units/L Total Protein 3.2 L (6.3-8.2) g/dL Albumin 2.8 L (3.9-5) g/dL Crossmatch Assessment and Plan The high probability of a clinically significant, sudden or life threatening deterioration of the [Pulmonary, cadiac, renal] system(s) required my full and direct attention, intervention and personal management. The aggregate critical care time was [40] minutes. This time is in addition to time spent performing reported procedures but includes the following: [x] Data Review and interpretation [x] Patient assessment and monitoring of vital signs [x] Documentation [x] Medication orders and management - Patient Problems (1) Acute respiratory failure with hypoxemia Current Visit: Yes Status: Acute Plan to address problem: Vent support --Critical care/Pulmonary following (2) Acute blood loss anemia Current Visit: Yes Status: Acute Plan to address problem: Transfused 8 units of PRBC Transfuse as necessary. 2 to 3 units of PRBC pending Check H/H frequently (3) DIC (disseminated intravascular coagulation) Current Visit: Yes Status: Acute Plan to address problem: Patient had multiple FFP's.Due for 2 more (4) Vaginal bleeding, abnormal Current Visit: Yes Status: Acute Plan to address problem: Patient had Uterine embolization (5) Hypernatremia Current Visit: Yes Status: Acute Plan to address problem: Sec to volume depletion.Will recheck and add D5w if necessary (6) DVT prophylaxis Current Visit: Yes Status: Acute Plan to address problem: On SCD's .Lovenox contraindicated
[2017-02-14] MEDS: NEO-SYNEPHRINE 100 MG in NACL 0.9% 90 ML IV SCH ×3 (03:05→14:37)
[2017-02-14] MEDS: TORADOL IV SCH (03:06)
[2017-02-14] MEDS: SODIUM BICARBONATE 150 MEQ in D5W 1,000 ML IV SCH ×3 (03:54→14:39)
[2017-02-14] MEDS ORDERED: M-M-R II VACCINE SUB-Q ONE (03:54)
[2017-02-14] MEDS: Vasostrict 20 UNIT in NACL 0.9% 100 ML IV SCH ×2 (03:55→14:37)
[2017-02-14] MEDS ORDERED: BOOSTRIX IM ONE (06:00)
[2017-02-14] MEDS: MOTRIN PO SCH ×3 (06:17→14:01)
[2017-02-14] MEDS: METHERGINE PO SCH (06:20)
[2017-02-14 06:41] LABS: ISTAT Base Excess -3; ISTAT HCO3 19.4; ISTAT PCO2 23.8 (35-45); ISTAT PH 7.519 (7.35-7.45); ISTAT PO2 146 (80-105); ISTAT SO2 100; ISTAT TCO2 20
[2017-02-14 06:52] LABS: Mean Corpuscular HGB Conc 33 % (30-34); Mean Corpuscular Hemoglobin 30 pg (28-32); Mean Corpuscular Volume 89 fl (79-97); Red Blood Count 1.12 M/mm3 (3.65-5.03); Red Cell Distribution Width 13.7 % (13.2-15.2)
[2017-02-14] MEDS: LEVOPHED 8 MG in NACL 0.9% 250ML 242 ML IV SCH ×2 (06:53→12:14)
[2017-02-14 07:07] LABS: INR 2.32 (0.87-1.13)
[2017-02-14 07:10] LABS: Chloride 97.9 mmol/L (98-107); Potassium 3.6 mmol/L (3.6-5.0)
[2017-02-14 07:27] LABS: Calcium 5.8 mg/dL (8.4-10.2)
[2017-02-14 07:37] LABS: Platelet Count 49 K/mm3 (140-440)
[2017-02-14 07:39] LABS: Hemoglobin 3.3 gm/dl (10.1-14.3)
[2017-02-14] MEDS ORDERED: NACL 0.9% 500 ML 500 ML IV NR (08:30)
[2017-02-14] MEDS ORDERED: VANCOMYCIN PHARMACY TO DOSE IV SCH ×2 (09:00)
[2017-02-14] MEDS ORDERED: NOVOSEVEN RT IV SCH ×2 (10:00→13:00)
[2017-02-14] MEDS ORDERED: NACL 0.9% 500 ML 500 ML IV ONE ×2 (10:00→16:06)
[2017-02-14] MEDS ORDERED: ZOSYN/NS 3.375GM/50ML 3.375 GM/50 ML BAG IV SCH (10:00)
[2017-02-14] MEDS ORDERED: WATER FOR INJ IV ONE (10:30)
[2017-02-14] MEDS ORDERED: NOVOSEVEN RT IV ONE (10:30)
[2017-02-14] MEDS ORDERED: VANCOMYCIN VIAL IV ONE ×2 (11:00→13:00)
--- NOTE | 2017-02-14 11:27 | Progress Note ---
Assessment and Plan Remains critically ill, anuric with worsening renal failure Sepsis Fevers with worsening leukocytosis--discussed with Dr. Roberson, hospitalist. Get blood cultures, urine cultures and tracheal aspirate Initiate broad spectrum antibiotics. Sepsis protocol Seen by renal service, needs CVVHD--unable to get CVVHD so will be transferred to a center that can provide the service. - Patient Problems (1) Acute respiratory failure with hypoxemia Current Visit: Yes Status: Acute Plan to address problem: Continue with MVS VAP bundle addressed Lung protective strategies, decrease tidal volumes Start weaning FIO2 Asiration precautions Stress ulcer prophylaxis Place NGT to LIS (2) Hemorrhagic shock Current Visit: Yes Status: Acute Plan to address problem: Transfuse and monitor for complications associated with massive transfusiions. Currently limited, unable to give a 1:1:1 replacement for blood and clotting factors. wean vasopressors as able Discussed with IR/Vascular re embolization (3) Disseminated intra-vascular coagulation Current Visit: Yes Status: Acute Plan to address problem: Continue with supportive transfusions Hematology consult (4) Diabetes mellitus with hyperglycemia Current Visit: Yes Status: Acute Plan to address problem: Accuchecks with low dose sliding scale insulin therapy (5) Metabolic acidosis with increased anion gap and accumulation of organic acids Current Visit: Yes Status: Acute Plan to address problem: Adjust minute ventilation on mechanical ventilatory support for better gas exchange Bicarbonate infusions/replacement (6) Encephalopathy acute Current Visit: Yes Status: Acute (7) Acute renal failure after delivery, delivered w/ condition Current Visit: Yes Status: Acute Plan to address problem: Renal consult placed. Patient will need CVVHD Subjective Date of service: 02/14/17 Interval history: Hemoglobin remains at 3g/dl, s/p embolization. Worsening abdominal distension remains unresponsive On going vasopressor requirements Full mechanical ventilatory support Remains anuric Objective - Exam Narrative Exam: General appearance: encephalopathic, intubated in NAD Eyes: edematous and icteric sclerae and conjunctivae; no lid-lag; slow reactive pupils HENT: Atraumatic; oropharynx +ETT Neck: Trachea midline; supple, no thyromegaly or lymphadenopathy Lungs: decreased BS amos CV: tachycardia, S1,S2, no murmurs, gallops or rubs Abdomen: very distended tense surgical wound covered with blood soaked surgical dressings Extremities: marked bilateral arms/legs edema Skin: jaundice Neuro: comatose Lines: + Right IJ TLC and left fem arterial line Vital Signs - 12hr 02/13/17 02/13/17 02/13/17 23:30 23:46 23:51 Temperature 96.0 F L Pulse Rate 146 H 145 H 145 H Respiratory 30 H 30 H 30 H Rate Blood Pressure 131/79 O2 Sat by Pulse 100 Oximetry 02/14/17 02/14/17 02/14/17 00:00 00:03 00:16 Temperature 99.8 F H 98.0 F Pulse Rate 146 H 145 H 149 H Respiratory 22 30 H 30 H Rate Blood Pressure 182/48 145/50 O2 Sat by Pulse 100 100 95 Oximetry 02/14/17 02/14/17 02/14/17 00:30 00:46 00:50 Temperature 98.9 F Pulse Rate 147 H 148 H 155 H Respiratory 30 H 31 H 30 H Rate Blood Pressure 159/57 O2 Sat by Pulse 100 Oximetry 02/14/17 02/14/17 02/14/17 01:00 01:15 01:16 Temperature 98.9 F Pulse Rate 150 H 148 H 155 H Respiratory 31 H 30 H 30 H Rate Blood Pressure 124/46 O2 Sat by Pulse 100 Oximetry 02/14/17 02/14/17 02/14/17 01:30 01:41 01:46 Temperature 98.9 F Pulse Rate 153 H 152 H Respiratory 30 H 31 H Rate Blood Pressure 122/46 O2 Sat by Pulse 100 100 Oximetry 02/14/17 02/14/17 02/14/17 02:00 02:15 02:16 Temperature 99.0 F Pulse Rate 153 H 148 H 147 H Respiratory 31 H 30 H 30 H Rate Blood Pressure 115/48 O2 Sat by Pulse 100 Oximetry 02/14/17 02/14/17 02/14/17 02:30 02:45 02:46 Temperature 99.0 F Pulse Rate 150 H 148 H 160 H Respiratory 31 H 30 H 33 H Rate Blood Pressure 140/59 O2 Sat by Pulse 100 100 Oximetry 02/14/17 02/14/17 02/14/17 03:00 03:15 03:16 Temperature 99.0 F Pulse Rate 154 H 154 H 154 H Respiratory 31 H 31 H 31 H Rate Blood Pressure 120/44 120/44 120/44 O2 Sat by Pulse 100 100 100 Oximetry 02/14/17 02/14/17 02/14/17 03:28 03:30 03:37 Temperature Pulse Rate 158 H 161 H Respiratory 32 H Rate Blood Pressure 120/44 120/44 O2 Sat by Pulse 100 100 100 Oximetry 02/14/17 02/14/17 02/14/17 03:46 04:00 04:16 Temperature Pulse Rate 159 H 159 H 156 H Respiratory 34 H 38 H 31 H Rate Blood Pressure 120/44 120/44 93/30 O2 Sat by Pulse 100 92 79 L Oximetry 02/14/17 02/14/17 02/14/17 04:30 04:46 05:00 Temperature Pulse Rate 158 H 160 H 158 H Respiratory 35 H 34 H 34 H Rate Blood Pressure 93/30 93/30 93/30 O2 Sat by Pulse 79 L 89 Oximetry 02/14/17 02/14/17 02/14/17 05:16 05:30 05:46 Temperature Pulse Rate 158 H 159 H 159 H Respiratory 34 H 34 H 34 H Rate Blood Pressure 93/30 93/30 93/30 O2 Sat by Pulse 58 L Oximetry 02/14/17 02/14/17 02/14/17 06:00 06:16 06:30 Temperature Pulse Rate 161 H 159 H 156 H Respiratory 34 H 30 H 31 H Rate Blood Pressure 93/30 97/27 97/27 O2 Sat by Pulse 56 L 48 L Oximetry 02/14/17 02/14/17 02/14/17 06:46 07:00 07:16 Temperature Pulse Rate 157 H 155 H 159 H Respiratory 30 H 33 H 34 H Rate Blood Pressure 97/27 97/27 97/27 O2 Sat by Pulse 50 L 76 L Oximetry 02/14/17 02/14/17 02/14/17 07:30 07:46 08:00 Temperature 102.6 F H Pulse Rate 163 H 162 H 158 H Respiratory 36 H 36 H 34 H Rate Blood Pressure 97/27 97/27 97/38 O2 Sat by Pulse 88 53 L 79 L Oximetry 02/14/17 02/14/17 02/14/17 08:16 08:30 08:46 Temperature Pulse Rate 159 H 160 H 161 H Respiratory 37 H 36 H 33 H Rate Blood Pressure 97/38 97/38 97/38 O2 Sat by Pulse 83 L 82 L 82 L Oximetry 02/14/17 02/14/17 02/14/17 09:00 09:16 09:30 Temperature Pulse Rate 157 H 156 H 161 H Respiratory 35 H 36 H 37 H Rate Blood Pressure 97/38 97/38 97/38 O2 Sat by Pulse 84 82 L 80 L Oximetry 02/14/17 02/14/17 02/14/17 09:40 09:46 10:00 Temperature 98.9 F Pulse Rate 154 H 159 H 156 H Respiratory 38 H 35 H 37 H Rate Blood Pressure 96/44 97/38 96/46 O2 Sat by Pulse 88 80 L 88 Oximetry 02/14/17 02/14/17 02/14/17 10:10 10:16 10:30 Temperature 99 F Pulse Rate 150 H 154 H 155 H Respiratory 38 H 37 H 37 H Rate Blood Pressure 112/44 96/46 96/46 O2 Sat by Pulse 83 L 89 Oximetry 02/14/17 02/14/17 02/14/17 10:40 10:46 10:55 Temperature 98 F 98 F Pulse Rate 155 H 155 H 155 H Respiratory 38 H 36 H 38 H Rate Blood Pressure 119/47 96/46 116/46 O2 Sat by Pulse 82 L Oximetry 02/14/17 02/14/17 11:00 11:16 Temperature Pulse Rate 150 H 150 H Respiratory 36 H 38 H Rate Blood Pressure 96/46 96/46 O2 Sat by Pulse 82 L 84 Oximetry Constitutional: comatose CBC and BMP: 02/14/17 15:15 02/14/17 05:20 ABG, PT/INR, D-dimer: ABG POC ABG pH 7.519 (7.35-7.45) H 02/14/17 05:22 POC ABG pCO2 23.8 (35-45) L 02/14/17 05:22 POC ABG pO2 146 (80-105) H 02/14/17 05:22 POC ABG HCO3 19.4 02/14/17 05:22 POC ABG Total CO2 20 02/14/17 05:22 POC ABG O2 Sat 100 02/14/17 05:22 PT/INR, D-dimer PT 26.9 Sec. (12.2-14.9) H 02/14/17 05:20 INR 2.32 (0.87-1.13) H 02/14/17 05:20 Abnormal lab findings: Abnormal Labs 02/12/17 02/12/17 02/12/17 23:50 23:50 23:56 WBC 11.7 H RBC Hgb Hct MCV RDW 12.8 L Plt Count [place] % (Auto) 8.1 H [place] # 0.9 H Seg Neutrophils % 70.9 H Nucleated RBC % Seg Neutrophils # 8.3 H Seg Neutrophils # Man Lymphocytes # (Manual) Monocytes # (Manual) PT INR APTT Fibrinogen POC ABG pH POC ABG pCO2 POC ABG pO2 Sodium Chloride Carbon Dioxide BUN Creatinine Glucose POC Glucose 217 H Calcium Total Bilirubin AST Alkaline Phosphatase Total Protein Albumin Crossmatch See Detail 02/13/17 02/13/17 02/13/17 03:05 03:17 04:30 WBC RBC Hgb 9.3 L Hct 27.8 L D MCV RDW Plt Count [place] % (Auto) [place] # Seg Neutrophils % Nucleated RBC % Seg Neutrophils # Seg Neutrophils # Man Lymphocytes # (Manual) Monocytes # (Manual) PT < 10.0 L INR > 17.67 H* APTT 92.6 H* Fibrinogen > 1500 H POC ABG pH 6.893 L POC ABG pCO2 101.0 H POC ABG pO2 12 L Sodium Chloride Carbon Dioxide BUN Creatinine Glucose POC Glucose Calcium Total Bilirubin AST Alkaline Phosphatase Total Protein Albumin Crossmatch 02/13/17 02/13/17 02/13/17 04:55 05:13 08:30 WBC 28.8 H RBC 2.81 L Hgb 6.7 L 8.6 L Hct 20.4 L D 27.7 L D MCV 99 H RDW 15.8 H Plt Count 84 L [place] % (Auto) [place] # Seg Neutrophils % Nucleated RBC % 4.0 H Seg Neutrophils # Seg Neutrophils # Man 11.5 H Lymphocytes # (Manual) 5.8 H Monocytes # (Manual) 1.4 H PT INR APTT Fibrinogen POC ABG pH 6.783 L POC ABG pCO2 21.8 L POC ABG pO2 267 H Sodium Chloride Carbon Dioxide BUN Creatinine Glucose POC Glucose Calcium Total Bilirubin AST Alkaline Phosphatase Total Protein Albumin Crossmatch 02/13/17 02/13/17 02/13/17 08:30 08:30 09:20 WBC RBC Hgb Hct MCV RDW Plt Count [place] % (Auto) [place] # Seg Neutrophils % Nucleated RBC % Seg Neutrophils # Seg Neutrophils # Man Lymphocytes # (Manual) Monocytes # (Manual) PT 36.6 H INR 3.42 H APTT 183.8 H* Fibrinogen 60 L* POC ABG pH 6.909 L POC ABG pCO2 POC ABG pO2 51 L Sodium 147 H Chloride 109.1 H Carbon Dioxide 10 L BUN Creatinine Glucose 367 H POC Glucose Calcium 5.9 L* Total Bilirubin 1.30 H AST 92 H Alkaline Phosphatase 161 H Total Protein 3.1 L Albumin 1.8 L Crossmatch 02/13/17 02/13/17 02/13/17 11:17 12:27 14:15 WBC RBC 1.18 L Hgb 3.6 L* D Hct 10.8 L* D MCV RDW 15.8 H Plt Count 14 L* [place] % (Auto) [place] # Seg Neutrophils % Nucleated RBC % 9.0 H Seg Neutrophils # Seg Neutrophils # Man Lymphocytes # (Manual) 1.0 L Monocytes # (Manual) PT INR APTT Fibrinogen POC ABG pH 6.921 L POC ABG pCO2 POC ABG pO2 71 L Sodium Chloride Carbon Dioxide BUN Creatinine Glucose POC Glucose 356 H Calcium Total Bilirubin AST Alkaline Phosphatase Total Protein Albumin Crossmatch 02/13/17 02/13/17 02/13/17 14:15 14:15 14:29 WBC RBC Hgb Hct MCV RDW Plt Count [place] % (Auto) [place] # Seg Neutrophils % Nucleated RBC % Seg Neutrophils # Seg Neutrophils # Man Lymphocytes # (Manual) Monocytes # (Manual) PT 57.7 H INR 6.03 H* APTT > 240.0 H* Fibrinogen POC ABG pH POC ABG pCO2 27.3 L POC ABG pO2 427 H Sodium 153 H Chloride Carbon Dioxide 14 L BUN Creatinine Glucose 403 H POC Glucose Calcium 5.0 L* D Total Bilirubin 2.00 H AST 95 H Alkaline Phosphatase Total Protein 3.2 L Albumin 2.8 L Crossmatch 02/13/17 02/13/17 02/14/17 18:57 21:27 02:58 WBC RBC Hgb Hct MCV RDW Plt Count [place] % (Auto) [place] # Seg Neutrophils % Nucleated RBC % Seg Neutrophils # Seg Neutrophils # Man Lymphocytes # (Manual) Monocytes # (Manual) PT INR APTT Fibrinogen POC ABG pH POC ABG pCO2 POC ABG pO2 Sodium Chloride Carbon Dioxide BUN Creatinine Glucose POC Glucose 392 H 287 H 219 H Calcium Total Bilirubin AST Alkaline Phosphatase Total Protein Albumin Crossmatch 02/14/17 02/14/17 02/14/17 05:20 05:20 05:20 WBC 12.0 H RBC 1.12 L Hgb 3.3 L* Hct 10.0 L* MCV RDW Plt Count 49 L D [place] % (Auto) [place] # Seg Neutrophils % Nucleated RBC % Seg Neutrophils # Seg Neutrophils # Man Lymphocytes # (Manual) Monocytes # (Manual) PT 26.9 H INR 2.32 H APTT 71.0 H* Fibrinogen 117 L POC ABG pH POC ABG pCO2 POC ABG pO2 Sodium 152 H Chloride 97.9 L Carbon Dioxide 17 L BUN 21 H Creatinine 2.9 H D Glucose 158 H POC Glucose Calcium 5.8 L* D Total Bilirubin AST Alkaline Phosphatase Total Protein Albumin Crossmatch 02/14/17 02/14/17 05:22 06:03 WBC RBC Hgb Hct MCV RDW Plt Count [place] % (Auto) [place] # Seg Neutrophils % Nucleated RBC % Seg Neutrophils # Seg Neutrophils # Man Lymphocytes # (Manual) Monocytes # (Manual) PT INR APTT Fibrinogen POC ABG pH 7.519 H POC ABG pCO2 23.8 L POC ABG pO2 146 H Sodium Chloride Carbon Dioxide BUN Creatinine Glucose POC Glucose 188 H Calcium Total Bilirubin AST Alkaline Phosphatase Total Protein Albumin Crossmatch Chest x-ray: image reviewed Allied health notes reviewed: RT ED Critical Care Note - Critical Care Note Total Time (mins): 31
--- NOTE | 2017-02-14 11:39 | Consultation ---
History of Present Illness - Reason for Consult Consult date: 02/14/17 acute renal failure - History of Present Illness Mrs. Blank is a 36yo female admitted at A 37 weeks she is s/p normal spontaneous vaginal delivery which was complicated by hemorrhage, hypovolemic shock and DIC. She is s/p bilateral internal iliac artery embolization on 02/13 for persistent bleeding. Patient now w/ increase in SCr to 2.9mg/dL and decline in UOP Past History Social history: no significant social history, Medications and Allergies Allergies Allergy/AdvReac Type Severity Reaction Status Date / Time No Known Allergies Allergy Verified 02/12/17 23:20 Home Medications Medication Instructions Recorded Confirmed Last Taken Type No Known Home Medications [No 02/13/17 02/13/17 Unknown History Reported Home Medications] Active Meds: Active Medications Acetaminophen (Tylenol) 650 mg PO Q4H PRN PRN Reason: Pain MILD(1-3)/Fever >100.5/LYLES Albumin Human (Buminate-5) 25 gm IV ONCE [place] Stop: 02/14/17 13:01 Last Admin: 02/13/17 13:17 Dose: 25 gm Bisacodyl (Dulcolax) 10 mg NM BID PRN PRN Reason: Constipation Dextrose (D50w (25gm) Syringe) 50 ml IV PRN PRN PRN Reason: Hypoglycemia Diphenhydramine HCl (Benadryl) 25 mg PO Q6H PRN PRN Reason: Itching Docusate Sodium (Colace) 100 mg PO BID [place] Last Admin: 02/13/17 21:24 Dose: Not Given Ferrous Sulfate (Feosol) 325 mg PO BID [place] Last Admin: 02/13/17 21:24 Dose: Not Given Dextrose/Lactated Ringer's (D5lr) 1,000 mls @ 150 mls/hr IV DIRECT [place] Phenylephrine HCl 100 mg/ (Sodium Chloride) 100 mls @ 3 mls/hr IV TITR [place]; 50 MCG/MIN PRN Reason: Protocol Last Admin: 02/14/17 09:45 Dose: 200 mcg/min, 12 mls/hr Dopamine HCl/Dextrose (Intropin Drip 800 Mg/D5w 250 Ml) 800 mg in 250 mls @ 2.381 mls/hr IV TITR [place]; 2 MCG/KG/MIN PRN Reason: Protocol Last Titration: 02/13/17 13:10 Dose: 0 mcg/kg/min, 0 mls/hr Vasopressin 20 unit/ Sodium (Chloride) 101 mls @ 9.09 mls/hr IV TITR [place]; 0.03 UNITS/MIN PRN Reason: Protocol Last Admin: 02/14/17 03:55 Dose: 0.03 units/min, 9.09 mls/hr Epinephrine 8 mg/ Sodium (Chloride) 250 mls @ 3.75 mls/hr IV TITR [place]; 2 MCG/ MIN PRN Reason: Protocol Norepinephrine 8 mg/ Sodium (Chloride) 250 mls @ 3.75 mls/hr IV TITR [place]; 2 MCG /MIN PRN Reason: Protocol Last Admin: 02/14/17 06:53 Dose: 15 mcg/min, 28.12 mls/hr Sodium Bicarbonate 150 meq/ (Dextrose) 1,150 mls @ 250 mls/hr IV DIRECT [place] Last Admin: 02/14/17 09:45 Dose: 250 mls/hr Sodium Chloride (Nacl 0.9% 500 Ml) 500 mls @ 0 mls/hr IV ONCE NR PRN Reason: As Directed Stop: 02/14/17 12:30 Piperacillin Sod/Tazobactam Sod (Zosyn/Ns 3.375gm/50ml) 3.375 gm in 50 mls @ 100 mls/hr IV Q8HR [place] PRN Reason: Protocol Last Admin: 02/14/17 10:32 Dose: 100 mls/hr Factor VIIa (Recombinant) 2, (500 mcg/ Sterile Water) 2.5 mls @ 0.833 mls/min IV Q2H [place] Stop: 02/14/17 15:02 Ibuprofen (Motrin) 600 mg PO Q6HR [place] Last Admin: 02/14/17 06:17 Dose: Not Given Insulin Human Regular (Novolin R) 0 units SUB-Q Q4HR [place] PRN Reason: Protocol Last Admin: 02/14/17 06:55 Dose: 3 units Ketorolac Tromethamine (Toradol) 30 mg IV Q6H [place] Stop: 02/18/17 08:59 Last Admin: 02/14/17 03:06 Dose: Not Given Magnesium Hydroxide (Milk Of Magnesia) 30 ml PO HS PRN PRN Reason: Constipation Methylergonovine Maleate (Methergine) 0.2 mg PO Q8HR [place] Last Admin: 02/14/17 06:20 Dose: Not Given Morphine Sulfate (Morphine) 4 mg IV Q4H PRN PRN Reason: Pain , Severe (7-10) Morphine Sulfate (Morphine) 2 mg IV Q4H PRN PRN Reason: Pain, Moderate (4-6) Multi-Ingredient Ointment (Lansinoh) 1 applic TP PRN PRN PRN Reason: Sore Nipples Multivitamins/Iron/Calcium ( Vitamin) 1 each PO QDAY [facility] Last Admin: 02/13/17 17:41 Dose: Not Given Naloxone HCl (Narcan 0.4 Mg/1 Ml) 0.1 mg IV Q2MIN PRN PRN Reason: Res Rate </= 8 or 02 SAT < 92% Ondansetron HCl (Zofran) 4 mg IV Q8H PRN PRN Reason: Nausea And Vomiting Oxycodone/Acetaminophen (Percocet 5/325) 2 tab PO Q6H PRN PRN Reason: Pain, Moderate (4-6) Promethazine HCl (Phenergan) 25 mg NM Q6H PRN PRN Reason: Nausea And Vomiting Promethazine HCl (Phenergan) 25 mg PO Q6H PRN PRN Reason: Nausea And Vomiting Sodium Chloride (Sodium Chloride Flush Syringe 10 Ml) 10 ml IV PRN PRN PRN Reason: LINE FLUSH Vancomycin HCl (Vancomycin Pharmacy To Dose) 1 each IV PKCONSULT [facility] PRN Reason: Protocol Witch Lashonda/Glycerin (Tucks Pad) 1 each TP PRN PRN PRN Reason: Hemorrhoid/cleansing/soothing Review of Systems ROS unobtainable: due to endotracheal tube Exam - Vital Signs Vital signs: Vital Signs Pulse BP 113 H 140/75 02/12/17 23:38 02/12/17 23:38 - General Appearance General appearance: intubated EENT: other (ETT in place) Respiratory: Other (coarse breath sounds) Heart: tachycardia Gastrointestinal: Present: other (soft, distended) Integumentary: no rash Neurologic: other (sedated) Results - Lab Results 02/14/17 15:15 02/14/17 05:20 Most recent lab results Calcium 5.8 mg/dL (8.4-10.2) L* D 02/14/17 05:20 Assessment and Plan Impression: * Oligoanuric [place] secondary to ATN * Hemorrhagic shock, --s/p total abdominal hysterectomy with left salpingo-oophorectomy. --s/p bilateral internal iliac artery embolization on 02/13 * DIC * Anemia secondary to acute blood loss * Acute respiratory failure Plan: * Case discussed with Dr. Roberson. Patient with mininal UOP and rising serum creatinine. She will need renal replacement therapy. However, given hemodynamic instabilty - patient requiring 3 pressors, tachycardic w/ HR in 120s - she is not stable for intermittent hemodialysis. As such, she will need CRRT which is not available at [facility]. I strongly recommend transfer to a facility that offers CRRT. * Transfusion of pRBC per heme/onc, primary team * Pressors to maintain MAP>65 * Avoid potential nephrotoxins - have stopped Ibuprofen and Ketorolac * Dose medications for renal function
[2017-02-14] MEDS ORDERED: CALCIUM GLUCONATE 2,000 MG in NACL 0.9% 100 ML IV ONE (11:44)
--- NOTE | 2017-02-14 11:49 | Consultation ---
History of Present Illness - Reason for Consult Consult date: 02/14/17 sepsis Requesting physician: YAO ROBERSON - History of Present Illness 36 years old female with history of gestational diabetes admitted on with 37 weeks with rupture of membranes with clear fluid on 02/12, admitted to L &D. She received care. Patient underwent normal spontaneous vaginal delivery on 02/13/17 and developed hemorrhage with hypovolemic shock and acute respiratory failure. Patient was trasnferred to the ICU. Initial temp 97.7, HR 113, BP 140/75. WBC 11.7. Hg 11.7, plat 201. She then became severely unstable, hypotensive, anemic with BP 90s/30s, Hg 6.3 then 3.6. Plat down to 14. INR >17, PTT>92. Fibrinogen 60s. Her WBC went to 28K. Creat 0.8. CXR showed LL opacity. Patient was taken emergently for total abdominal hysterectomy findings of enlarged uterus and large left ovarian mass , and then bilateral iliac artery embolization on 02/13/17. She is currenlty intubated on 3 pressors, unable to provide a history. Last 24h patient has become unresponsive. Microbiology: none Current Antimicrobials: Zosyn 02/14 Vancomycin 02/14 Previous Antimicrobials: Past History Social history: no significant social history, Medications and Allergies Allergies Allergy/AdvReac Type Severity Reaction Status Date / Time No Known Allergies Allergy Verified 02/12/17 23:20 Home Medications Medication Instructions Recorded Confirmed Last Taken Type No Known Home Medications [No 02/13/17 02/13/17 Unknown History Reported Home Medications] Active Meds: Active Medications Acetaminophen (Tylenol) 650 mg PO Q4H PRN PRN Reason: Pain MILD(1-3)/Fever >100.5/LYLES Albumin Human (Buminate-5) 25 gm IV ONCE [place] Stop: 02/14/17 13:01 Last Admin: 02/13/17 13:17 Dose: 25 gm Bisacodyl (Dulcolax) 10 mg CA BID PRN PRN Reason: Constipation Dextrose (D50w (25gm) Syringe) 50 ml IV PRN PRN PRN Reason: Hypoglycemia Diphenhydramine HCl (Benadryl) 25 mg PO Q6H PRN PRN Reason: Itching Docusate Sodium (Colace) 100 mg PO BID [place] Last Admin: 02/13/17 21:24 Dose: Not Given Ferrous Sulfate (Feosol) 325 mg PO BID [place] Last Admin: 02/13/17 21:24 Dose: Not Given Dextrose/Lactated Ringer's (D5lr) 1,000 mls @ 150 mls/hr IV DIRECT [place] Phenylephrine HCl 100 mg/ (Sodium Chloride) 100 mls @ 3 mls/hr IV TITR [place]; 50 MCG/MIN PRN Reason: Protocol Last Admin: 02/14/17 09:45 Dose: 200 mcg/min, 12 mls/hr Dopamine HCl/Dextrose (Intropin Drip 800 Mg/D5w 250 Ml) 800 mg in 250 mls @ 2.381 mls/hr IV TITR [place]; 2 MCG/KG/MIN PRN Reason: Protocol Last Titration: 02/13/17 13:10 Dose: 0 mcg/kg/min, 0 mls/hr Vasopressin 20 unit/ Sodium (Chloride) 101 mls @ 9.09 mls/hr IV TITR [place]; 0.03 UNITS/MIN PRN Reason: Protocol Last Admin: 02/14/17 03:55 Dose: 0.03 units/min, 9.09 mls/hr Epinephrine 8 mg/ Sodium (Chloride) 250 mls @ 3.75 mls/hr IV TITR [place]; 2 MCG/ MIN PRN Reason: Protocol Norepinephrine 8 mg/ Sodium (Chloride) 250 mls @ 3.75 mls/hr IV TITR [place]; 2 MCG /MIN PRN Reason: Protocol Last Admin: 02/14/17 06:53 Dose: 15 mcg/min, 28.12 mls/hr Sodium Bicarbonate 150 meq/ (Dextrose) 1,150 mls @ 250 mls/hr IV DIRECT [place] Last Admin: 02/14/17 09:45 Dose: 250 mls/hr Sodium Chloride (Nacl 0.9% 500 Ml) 500 mls @ 0 mls/hr IV ONCE NR PRN Reason: As Directed Stop: 02/14/17 12:30 Piperacillin Sod/Tazobactam Sod (Zosyn/Ns 3.375gm/50ml) 3.375 gm in 50 mls @ 100 mls/hr IV Q8HR [place] PRN Reason: Protocol Last Admin: 02/14/17 10:32 Dose: 100 mls/hr Factor VIIa (Recombinant) 2, (500 mcg/ Sterile Water) 2.5 mls @ 0.833 mls/min IV Q2H [facility] Stop: 02/14/17 15:02 Calcium Gluconate 2,000 mg/ (Sodium Chloride) 120 mls @ 660 mls/hr IV ONCE ONE Stop: 02/14/17 11:54 Ibuprofen (Motrin) 600 mg PO Q6HR [facility] Last Admin: 02/14/17 06:17 Dose: Not Given Insulin Human Regular (Novolin R) 0 units SUB-Q Q4HR [place] PRN Reason: Protocol Last Admin: 02/14/17 06:55 Dose: 3 units Ketorolac Tromethamine (Toradol) 30 mg IV Q6H [facility] Stop: 02/18/17 08:59 Last Admin: 02/14/17 03:06 Dose: Not Given Magnesium Hydroxide (Milk Of Magnesia) 30 ml PO HS PRN PRN Reason: Constipation Methylergonovine Maleate (Methergine) 0.2 mg PO Q8HR [facility] Last Admin: 02/14/17 06:20 Dose: Not Given Morphine Sulfate (Morphine) 4 mg IV Q4H PRN PRN Reason: Pain , Severe (7-10) Morphine Sulfate (Morphine) 2 mg IV Q4H PRN PRN Reason: Pain, Moderate (4-6) Multi-Ingredient Ointment (Lansinoh) 1 applic TP PRN PRN PRN Reason: Sore Nipples Multivitamins/Iron/Calcium ( Vitamin) 1 each PO QDAY [facility] Last Admin: 02/13/17 17:41 Dose: Not Given Naloxone HCl (Narcan 0.4 Mg/1 Ml) 0.1 mg IV Q2MIN PRN PRN Reason: Res Rate </= 8 or 02 SAT < 92% Ondansetron HCl (Zofran) 4 mg IV Q8H PRN PRN Reason: Nausea And Vomiting Oxycodone/Acetaminophen (Percocet 5/325) 2 tab PO Q6H PRN PRN Reason: Pain, Moderate (4-6) Promethazine HCl (Phenergan) 25 mg CA Q6H PRN PRN Reason: Nausea And Vomiting Promethazine HCl (Phenergan) 25 mg PO Q6H PRN PRN Reason: Nausea And Vomiting Sodium Chloride (Sodium Chloride Flush Syringe 10 Ml) 10 ml IV PRN PRN PRN Reason: LINE FLUSH Vancomycin HCl (Vancomycin Pharmacy To Dose) 1 each IV PKCONSULT [place] PRN Reason: Protocol Witch Lashonda/Glycerin (Tucks Pad) 1 each TP PRN PRN PRN Reason: Hemorrhoid/cleansing/soothing Review of Systems ROS unobtainable: due to endotracheal tube, due to mental status Physical Examination - Physical Exam Narrative exam: General appearance: comatose intubated in NAD Eyes: edematous and icteric sclerae and conjunctivae; no lid-lag; slow reactive pupils HENT: Atraumatic; oropharynx +ETT Neck: Trachea midline; supple, no thyromegaly or lymphadenopathy Lungs: decreased BS amos CV: tachy Abdomen: very distended tense surgical wound covered with surg dressings Extremities: marked bilateral arms/legs edema Skin: jaundice Psych: comatose Neuro: comatose Lines: + right IJ TLC and left fem TLC - Constitutional Vitals: Vital Signs Temp Pulse Resp BP Pulse Ox 98 F 150 H 38 H 96/46 84 02/14/17 10:55 02/14/17 11:36 02/14/17 11:16 02/14/17 11:36 02/14/17 11:36 Temperature -Last 24 Hours Temperature 98 F Temperature 98 F Temperature 99 F Temperature 98.9 F Temperature 102.6 F Temperature 99.0 F Temperature 99.0 F Temperature 99.0 F Temperature 98.9 F Temperature 98.9 F Temperature 98.9 F Temperature 98.0 F Temperature 99.8 F Temperature 96.0 F Temperature 96.0 F Temperature 96.0 F Temperature 96.0 F Results - Labs CBC & Chem 7: 02/14/17 05:20 02/14/17 05:20 Labs: Abnormal lab results 02/12/17 02/13/17 02/13/17 Range/Units 23:50 11:17 12:27 WBC (4.5-11.0) K/mm3 RBC (3.65-5.03) M/mm3 Hgb (10.1-14.3) gm/dl Hct (30.3-42.9) % RDW (13.2-15.2) % Plt Count (140-440) K/mm3 Nucleated RBC % (0.0-0.9) % Lymphocytes # (Manual) (1.2-5.4) K/mm3 PT (12.2-14.9) Sec. INR (0.87-1.13) APTT (24.2-36.6) Sec. Fibrinogen (211-480) mg/dl POC ABG pH 6.921 L (7.35-7.45) POC ABG pCO2 (35-45) POC ABG pO2 71 L (80-105) Sodium (137-145) mmol/L Chloride (98-107) mmol/L Carbon Dioxide (22-30) mmol/L BUN (7-17) mg/dL Creatinine (0.7-1.2) mg/dL Glucose (65-100) mg/dL POC Glucose 356 H (70-105) Calcium (8.4-10.2) mg/dL Total Bilirubin (0.1-1.2) mg/dL AST (5-40) units/L Total Protein (6.3-8.2) g/dL Albumin (3.9-5) g/dL Crossmatch See Detail 02/13/17 02/13/17 02/13/17 Range/Units 14:15 14:15 14:15 WBC (4.5-11.0) K/mm3 RBC 1.18 L (3.65-5.03) M/mm3 Hgb 3.6 L* D (10.1-14.3) gm/dl Hct 10.8 L* D (30.3-42.9) % RDW 15.8 H (13.2-15.2) % Plt Count 14 L* (140-440) K/mm3 Nucleated RBC % 9.0 H (0.0-0.9) % Lymphocytes # (Manual) 1.0 L (1.2-5.4) K/mm3 PT 57.7 H (12.2-14.9) Sec. INR 6.03 H* (0.87-1.13) APTT > 240.0 H* (24.2-36.6) Sec. Fibrinogen (211-480) mg/dl POC ABG pH (7.35-7.45) POC ABG pCO2 (35-45) POC ABG pO2 (80-105) Sodium 153 H (137-145) mmol/L Chloride (98-107) mmol/L Carbon Dioxide 14 L (22-30) mmol/L BUN (7-17) mg/dL Creatinine (0.7-1.2) mg/dL Glucose 403 H (65-100) mg/dL POC Glucose (70-105) Calcium 5.0 L* D (8.4-10.2) mg/dL Total Bilirubin 2.00 H (0.1-1.2) mg/dL AST 95 H (5-40) units/L Total Protein 3.2 L (6.3-8.2) g/dL Albumin 2.8 L (3.9-5) g/dL Crossmatch 02/13/17 02/13/17 02/13/17 Range/Units 14:29 18:57 21:27 WBC (4.5-11.0) K/mm3 RBC (3.65-5.03) M/mm3 Hgb (10.1-14.3) gm/dl Hct (30.3-42.9) % RDW (13.2-15.2) % Plt Count (140-440) K/mm3 Nucleated RBC % (0.0-0.9) % Lymphocytes # (Manual) (1.2-5.4) K/mm3 PT (12.2-14.9) Sec. INR (0.87-1.13) APTT (24.2-36.6) Sec. Fibrinogen (211-480) mg/dl POC ABG pH (7.35-7.45) POC ABG pCO2 27.3 L (35-45) POC ABG pO2 427 H (80-105) Sodium (137-145) mmol/L Chloride (98-107) mmol/L Carbon Dioxide (22-30) mmol/L BUN (7-17) mg/dL Creatinine (0.7-1.2) mg/dL Glucose (65-100) mg/dL POC Glucose 392 H 287 H (70-105) Calcium (8.4-10.2) mg/dL Total Bilirubin (0.1-1.2) mg/dL AST (5-40) units/L Total Protein (6.3-8.2) g/dL Albumin (3.9-5) g/dL Crossmatch 02/14/17 02/14/17 02/14/17 Range/Units 02:58 05:20 05:20 WBC 12.0 H (4.5-11.0) K/mm3 RBC 1.12 L (3.65-5.03) M/mm3 Hgb 3.3 L* (10.1-14.3) gm/dl Hct 10.0 L* (30.3-42.9) % RDW (13.2-15.2) % Plt Count 49 L D (140-440) K/mm3 Nucleated RBC % (0.0-0.9) % Lymphocytes # (Manual) (1.2-5.4) K/mm3 PT 26.9 H (12.2-14.9) Sec. INR 2.32 H (0.87-1.13) APTT 71.0 H* (24.2-36.6) Sec. Fibrinogen 117 L (211-480) mg/dl POC ABG pH (7.35-7.45) POC ABG pCO2 (35-45) POC ABG pO2 (80-105) Sodium (137-145) mmol/L Chloride (98-107) mmol/L Carbon Dioxide (22-30) mmol/L BUN (7-17) mg/dL Creatinine (0.7-1.2) mg/dL Glucose (65-100) mg/dL POC Glucose 219 H (70-105) Calcium (8.4-10.2) mg/dL Total Bilirubin (0.1-1.2) mg/dL AST (5-40) units/L Total Protein (6.3-8.2) g/dL Albumin (3.9-5) g/dL Crossmatch 02/14/17 02/14/17 02/14/17 Range/Units 05:20 05:22 06:03 WBC (4.5-11.0) K/mm3 RBC (3.65-5.03) M/mm3 Hgb (10.1-14.3) gm/dl Hct (30.3-42.9) % RDW (13.2-15.2) % Plt Count (140-440) K/mm3 Nucleated RBC % (0.0-0.9) % Lymphocytes # (Manual) (1.2-5.4) K/mm3 PT (12.2-14.9) Sec. INR (0.87-1.13) APTT (24.2-36.6) Sec. Fibrinogen (211-480) mg/dl POC ABG pH 7.519 H (7.35-7.45) POC ABG pCO2 23.8 L (35-45) POC ABG pO2 146 H (80-105) Sodium 152 H (137-145) mmol/L Chloride 97.9 L (98-107) mmol/L Carbon Dioxide 17 L (22-30) mmol/L BUN 21 H (7-17) mg/dL Creatinine 2.9 H D (0.7-1.2) mg/dL Glucose 158 H (65-100) mg/dL POC Glucose 188 H (70-105) Calcium 5.8 L* D (8.4-10.2) mg/dL Total Bilirubin (0.1-1.2) mg/dL AST (5-40) units/L Total Protein (6.3-8.2) g/dL Albumin (3.9-5) g/dL Crossmatch Assessment and Plan Assessment: 1) Hemorrhagic shock with DIC ? some component of septic shock: NOT Present on admission, manifested by tachycardia, hypotension, leukocytosis, bandemia, increased lactate. Etiology most likely uterine bleeding +/- pneumonia. 2) Acute Respiratory failure 3) DIC and thrombocytopenia 4) Post uterine bleeding s/p total abdominal hysterectomy findings of enlarged uterus and large left ovarian mass, and then bilateral iliac artery embolization on 02/13/17. 5) Severe anemia 6) Gestational diabetes 7) Normal spontaneous vaginal delivery on 02/13/17 8) Presumed LLL pneumonia 9) Encephalopathy Plan: -obtain blood cultures, UA, urine culture, respiratory cultures, procalcitonin, C-reactive protein (CRP) -continue vancomycin, zosyn - renally dosed -add fluconazole -neuro eval / CT head -consider abdominal CT Guarded prognosis Thank you Dr Roberson for your consultation, will follow up with you. Criss Boyd MD Infectious Diseases Specialist [facility] ([facility] M [phone] O [phone]
[2017-02-14] MEDS ORDERED: DIFLUCAN 200 MG/100 ML BAG IV SCH (13:00)
[2017-02-14] MEDS ORDERED: VANCOMYCIN/NS 1 GM/250 ML 1 GM/250 ML BAG IV ONE (13:00)
[2017-02-14] MEDS ORDERED: WATER FOR INJ IV SCH (13:00)
[2017-02-14 14:27] LABS: ISTAT Base Excess -3; ISTAT HCO3 21.4; ISTAT PCO2 33.9 (35-45); ISTAT PO2 132 (80-105); ISTAT SO2 99; ISTAT TCO2 22
--- NOTE | 2017-02-14 15:27 | Hem/Onc Consultation ---
History of Present Illness - Reason for Consult Consult date: 02/14/17 - History of Present Illness 36 Y/o lady admitted with post hemorrhage s/p surgery and vascular embolization to stop bleeding. Unresponsive on 3 pressors since yesterday. Consulted by Dr. Alonso garner Kimberly 7 administration. Past History Social history: no significant social history, Medications and Allergies Allergies Allergy/AdvReac Type Severity Reaction Status Date / Time No Known Allergies Allergy Verified 02/12/17 23:20 Home Medications Medication Instructions Recorded Confirmed Last Taken Type No Known Home Medications [No 02/13/17 02/13/17 Unknown History Reported Home Medications] Active Meds: Active Medications Acetaminophen (Tylenol) 650 mg PO Q4H PRN PRN Reason: Pain MILD(1-3)/Fever >100.5/LYLES Bisacodyl (Dulcolax) 10 mg WV BID PRN PRN Reason: Constipation Dextrose (D50w (25gm) Syringe) 50 ml IV PRN PRN PRN Reason: Hypoglycemia Diphenhydramine HCl (Benadryl) 25 mg PO Q6H PRN PRN Reason: Itching Docusate Sodium (Colace) 100 mg PO BID [place] Last Admin: 02/13/17 21:24 Dose: Not Given Ferrous Sulfate (Feosol) 325 mg PO BID [place] Last Admin: 02/13/17 21:24 Dose: Not Given Dextrose/Lactated Ringer's (D5lr) 1,000 mls @ 150 mls/hr IV DIRECT [place] Phenylephrine HCl 100 mg/ (Sodium Chloride) 100 mls @ 3 mls/hr IV TITR [place]; 50 MCG/MIN PRN Reason: Protocol Last Admin: 02/14/17 14:37 Dose: 200 mcg/min, 12 mls/hr Dopamine HCl/Dextrose (Intropin Drip 800 Mg/D5w 250 Ml) 800 mg in 250 mls @ 2.381 mls/hr IV TITR [place]; 2 MCG/KG/MIN PRN Reason: Protocol Last Titration: 02/13/17 13:10 Dose: 0 mcg/kg/min, 0 mls/hr Vasopressin 20 unit/ Sodium (Chloride) 101 mls @ 9.09 mls/hr IV TITR [place]; 0.03 UNITS/MIN PRN Reason: Protocol Last Admin: 02/14/17 14:37 Dose: 0.03 units/min, 9.09 mls/hr Epinephrine 8 mg/ Sodium (Chloride) 250 mls @ 3.75 mls/hr IV TITR [place]; 2 MCG/ MIN PRN Reason: Protocol Norepinephrine 8 mg/ Sodium (Chloride) 250 mls @ 3.75 mls/hr IV TITR [place]; 2 MCG /MIN PRN Reason: Protocol Last Admin: 02/14/17 12:14 Dose: 20 mcg/min, 37.5 mls/hr Sodium Bicarbonate 150 meq/ (Dextrose) 1,150 mls @ 250 mls/hr IV DIRECT [facility] Last Admin: 02/14/17 14:39 Dose: 250 mls/hr Fluconazole (Diflucan) 200 mg in 100 mls @ 100 mls/hr IV Q24HR [place] PRN Reason: Protocol Last Admin: 02/14/17 14:02 Dose: 100 mls/hr Piperacillin Sod/Tazobactam Sod (Zosyn/Ns 2.25 Gm/50ml) 2.25 gm in 50 mls @ 100 mls/hr IV Q6HR [facility] Ibuprofen (Motrin) 600 mg PO Q6HR [facility] Last Admin: 02/14/17 14:01 Dose: Not Given Insulin Human Regular (Novolin R) 0 units SUB-Q Q4HR [place] PRN Reason: Protocol Last Admin: 02/14/17 06:55 Dose: 3 units Ketorolac Tromethamine (Toradol) 30 mg IV Q6H [facility] Stop: 02/18/17 08:59 Last Admin: 02/14/17 03:06 Dose: Not Given Magnesium Hydroxide (Milk Of Magnesia) 30 ml PO HS PRN PRN Reason: Constipation Methylergonovine Maleate (Methergine) 0.2 mg PO Q8HR [facility] Last Admin: 02/14/17 06:20 Dose: Not Given Morphine Sulfate (Morphine) 4 mg IV Q4H PRN PRN Reason: Pain , Severe (7-10) Morphine Sulfate (Morphine) 2 mg IV Q4H PRN PRN Reason: Pain, Moderate (4-6) Multi-Ingredient Ointment (Lansinoh) 1 applic TP PRN PRN PRN Reason: Sore Nipples Multivitamins/Iron/Calcium ( Vitamin) 1 each PO QDAY [facility] Last Admin: 02/13/17 17:41 Dose: Not Given Naloxone HCl (Narcan 0.4 Mg/1 Ml) 0.1 mg IV Q2MIN PRN PRN Reason: Res Rate </= 8 or 02 SAT < 92% Ondansetron HCl (Zofran) 4 mg IV Q8H PRN PRN Reason: Nausea And Vomiting Oxycodone/Acetaminophen (Percocet 5/325) 2 tab PO Q6H PRN PRN Reason: Pain, Moderate (4-6) Promethazine HCl (Phenergan) 25 mg WV Q6H PRN PRN Reason: Nausea And Vomiting Promethazine HCl (Phenergan) 25 mg PO Q6H PRN PRN Reason: Nausea And Vomiting Sodium Chloride (Sodium Chloride Flush Syringe 10 Ml) 10 ml IV PRN PRN PRN Reason: LINE FLUSH Vancomycin HCl (Vancomycin Pharmacy To Dose) 1 each IV PKCONSULT [place] PRN Reason: Protocol Witch Lashonda/Glycerin (Tucks Pad) 1 each TP PRN PRN PRN Reason: Hemorrhoid/cleansing/soothing Exam - Constitutional Vitals: Last Vital Signs Temp 100.8 F H 02/14/17 14:50 Pulse 160 H 02/14/17 14:50 Resp 36 H 02/14/17 14:50 BP 112/52 02/14/17 14:50 Pulse Ox 88 02/14/17 14:35 General appearance: other (sick looking on vent) - EENT Lymph node exam: negative cervical - Neck Neck: supple - Respiratory Respiratory: negative: CTA - Cardiovascular Rhythm: regular Heart Sounds: Present: S1 & S2 - Gastrointestinal General gastrointestinal: Present: distended (has anasarca) Results - Labs lab Results: Laboratory Results - last 24 hr 02/12/17 02/13/17 02/13/17 23:50 12:27 14:15 WBC RBC Hgb Hct MCV MCH MCHC RDW Plt Count Add Manual Diff Complete Total Counted 100 Seg Neuts % (Manual) 48.0 Band Neutrophils % 27.0 Lymphocytes % (Manual) 15.0 Reactive Lymphs % (Man) 0 Monocytes % (Manual) 6.0 Eosinophils % (Manual) 0 Basophils % (Manual) 0 Metamyelocytes % 4.0 Myelocytes % 0 Promyelocytes % 0 Blast Cells % 0 Nucleated RBC % 9.0 H Seg Neutrophils # Man 3.2 Band Neutrophils # 1.8 Lymphocytes # (Manual) 1.0 L Abs React Lymphs (Man) 0.0 Monocytes # (Manual) 0.4 Eosinophils # (Manual) 0.0 Basophils # (Manual) 0.0 Metamyelocytes # 0.3 Myelocytes # 0.0 Promyelocytes # 0.0 Blast Cells # 0.0 WBC Morphology Not Reportable Hypersegmented Neuts Not Reportable Hyposegmented Neuts Not Reportable Hypogranular Neuts Not Reportable Smudge Cells Not Reportable Toxic Granulation Not Reportable Toxic Vacuolation Not Reportable Dohle Bodies Not Reportable Pelger-Huet Anomaly Not Reportable Jaguar Rods Not Reportable Platelet Estimate Consistent w auto Clumped Platelets Not Reportable Plt Clumps, EDTA Not Reportable Large Platelets Not Reportable Giant Platelets Not Reportable Platelet Satelliting Not Reportable Plt Morphology Comment Not Reportable RBC Morphology Not Reportable Dimorphic RBCs Not Reportable Polychromasia Not Reportable Hypochromasia 1+ Poikilocytosis 1+ Anisocytosis 1+ Microcytosis Not Reportable Macrocytosis Not Reportable Spherocytes Not Reportable Pappenheimer Bodies Not Reportable Sickle Cells Not Reportable Target Cells Not Reportable Tear Drop Cells Not Reportable Ovalocytes Not Reportable Helmet Cells Not Reportable [place] Bodies Not Reportable [place] Rings Not Reportable Ashkan Cells Not Reportable Bite Cells Not Reportable Crenated Cell Not Reportable Elliptocytes Not Reportable Acanthocytes (Spur) Not Reportable Rouleaux Not Reportable Hemoglobin C Crystals Not Reportable Schistocytes Not Reportable Malaria parasites Not Reportable Jesus Bodies Not Reportable Hem Pathologist Commnt No PT INR APTT Fibrinogen POC ABG pH POC ABG pCO2 POC ABG pO2 POC ABG HCO3 POC ABG Total CO2 POC ABG O2 Sat POC ABG Base Excess FiO2 Sodium Potassium Chloride Carbon Dioxide Anion Gap BUN Creatinine Estimated GFR BUN/Creatinine Ratio Glucose POC Glucose 356 H Calcium AST Blood Type B POSITIVE Antibody Screen Negative Crossmatch See Detail 02/13/17 02/13/17 02/13/17 14:15 18:57 21:27 WBC RBC Hgb Hct MCV MCH MCHC RDW Plt Count Add Manual Diff Total Counted Seg Neuts % (Manual) Band Neutrophils % Lymphocytes % (Manual) Reactive Lymphs % (Man) Monocytes % (Manual) Eosinophils % (Manual) Basophils % (Manual) Metamyelocytes % Myelocytes % Promyelocytes % Blast Cells % Nucleated RBC % Seg Neutrophils # Man Band Neutrophils # Lymphocytes # (Manual) Abs React Lymphs (Man) Monocytes # (Manual) Eosinophils # (Manual) Basophils # (Manual) Metamyelocytes # Myelocytes # Promyelocytes # Blast Cells # WBC Morphology Hypersegmented Neuts Hyposegmented Neuts Hypogranular Neuts Smudge Cells Toxic Granulation Toxic Vacuolation Dohle Bodies Pelger-Huet Anomaly Jaguar Rods Platelet Estimate Clumped Platelets Plt Clumps, EDTA Large Platelets Giant Platelets Platelet Satelliting Plt Morphology Comment RBC Morphology Dimorphic RBCs Polychromasia Hypochromasia Poikilocytosis Anisocytosis Microcytosis Macrocytosis Spherocytes Pappenheimer Bodies Sickle Cells Target Cells Tear Drop Cells Ovalocytes Helmet Cells [place] Bodies [place] Rings Ashkan Cells Bite Cells Crenated Cell Elliptocytes Acanthocytes (Spur) Rouleaux Hemoglobin C Crystals Schistocytes Malaria parasites Jesus Bodies Hem Pathologist Commnt PT INR APTT Fibrinogen POC ABG pH POC ABG pCO2 POC ABG pO2 POC ABG HCO3 POC ABG Total CO2 POC ABG O2 Sat POC ABG Base Excess FiO2 Sodium Potassium Chloride Carbon Dioxide Anion Gap BUN Creatinine Estimated GFR BUN/Creatinine Ratio Glucose POC Glucose 392 H 287 H Calcium 5.0 L* D AST 95 H Blood Type Antibody Screen Crossmatch 02/14/17 02/14/17 02/14/17 02:58 05:20 05:20 WBC 12.0 H RBC 1.12 L Hgb 3.3 L* Hct 10.0 L* MCV 89 MCH 30 MCHC 33 RDW 13.7 Plt Count 49 L D Add Manual Diff Total Counted Seg Neuts % (Manual) Band Neutrophils % Lymphocytes % (Manual) Reactive Lymphs % (Man) Monocytes % (Manual) Eosinophils % (Manual) Basophils % (Manual) Metamyelocytes % Myelocytes % Promyelocytes % Blast Cells % Nucleated RBC % Seg Neutrophils # Man Band Neutrophils # Lymphocytes # (Manual) Abs React Lymphs (Man) Monocytes # (Manual) Eosinophils # (Manual) Basophils # (Manual) Metamyelocytes # Myelocytes # Promyelocytes # Blast Cells # WBC Morphology Hypersegmented Neuts Hyposegmented Neuts Hypogranular Neuts Smudge Cells Toxic Granulation Toxic Vacuolation Dohle Bodies Pelger-Huet Anomaly Jaguar Rods Platelet Estimate Clumped Platelets Plt Clumps, EDTA Large Platelets Giant Platelets Platelet Satelliting Plt Morphology Comment RBC Morphology Dimorphic RBCs Polychromasia Hypochromasia Poikilocytosis Anisocytosis Microcytosis Macrocytosis Spherocytes Pappenheimer Bodies Sickle Cells Target Cells Tear Drop Cells Ovalocytes Helmet Cells [place] Bodies [place] Rings Cornelius Cells Bite Cells Crenated Cell Elliptocytes Acanthocytes (Spur) Rouleaux Hemoglobin C Crystals Schistocytes Malaria parasites Jesus Bodies Hem Pathologist Commnt PT 26.9 H INR 2.32 H APTT 71.0 H* Fibrinogen 117 L POC ABG pH POC ABG pCO2 POC ABG pO2 POC ABG HCO3 POC ABG Total CO2 POC ABG O2 Sat POC ABG Base Excess FiO2 Sodium Potassium Chloride Carbon Dioxide Anion Gap BUN Creatinine Estimated GFR BUN/Creatinine Ratio Glucose POC Glucose 219 H Calcium AST Blood Type Antibody Screen Crossmatch 02/14/17 02/14/17 02/14/17 05:20 05:22 06:03 WBC RBC Hgb Hct MCV MCH MCHC RDW Plt Count Add Manual Diff Total Counted Seg Neuts % (Manual) Band Neutrophils % Lymphocytes % (Manual) Reactive Lymphs % (Man) Monocytes % (Manual) Eosinophils % (Manual) Basophils % (Manual) Metamyelocytes % Myelocytes % Promyelocytes % Blast Cells % Nucleated RBC % Seg Neutrophils # Man Band Neutrophils # Lymphocytes # (Manual) Abs React Lymphs (Man) Monocytes # (Manual) Eosinophils # (Manual) Basophils # (Manual) Metamyelocytes # Myelocytes # Promyelocytes # Blast Cells # WBC Morphology Hypersegmented Neuts Hyposegmented Neuts Hypogranular Neuts Smudge Cells Toxic Granulation Toxic Vacuolation Dohle Bodies Pelger-Huet Anomaly Jaguar Rods Platelet Estimate Clumped Platelets Plt Clumps, EDTA Large Platelets Giant Platelets Platelet Satelliting Plt Morphology Comment RBC Morphology Dimorphic RBCs Polychromasia Hypochromasia Poikilocytosis Anisocytosis Microcytosis Macrocytosis Spherocytes Pappenheimer Bodies Sickle Cells Target Cells Tear Drop Cells Ovalocytes Helmet Cells [place] Bodies [place] Rings Cornelius Cells Bite Cells Crenated Cell Elliptocytes Acanthocytes (Spur) Rouleaux Hemoglobin C Crystals Schistocytes Malaria parasites Jesus Bodies Hem Pathologist Commnt PT INR APTT Fibrinogen POC ABG pH 7.519 H POC ABG pCO2 23.8 L POC ABG pO2 146 H POC ABG HCO3 19.4 POC ABG Total CO2 20 POC ABG O2 Sat 100 POC ABG Base Excess -3 FiO2 50 Sodium 152 H Potassium 3.6 Chloride 97.9 L Carbon Dioxide 17 L Anion Gap 41 BUN 21 H Creatinine 2.9 H D Estimated GFR 18 BUN/Creatinine Ratio 7 Glucose 158 H POC Glucose 188 H Calcium 5.8 L* D AST Blood Type Antibody Screen Crossmatch 02/14/17 14:25 WBC RBC Hgb Hct MCV MCH MCHC RDW Plt Count Add Manual Diff Total Counted Seg Neuts % (Manual) Band Neutrophils % Lymphocytes % (Manual) Reactive Lymphs % (Man) Monocytes % (Manual) Eosinophils % (Manual) Basophils % (Manual) Metamyelocytes % Myelocytes % Promyelocytes % Blast Cells % Nucleated RBC % Seg Neutrophils # Man Band Neutrophils # Lymphocytes # (Manual) Abs React Lymphs (Man) Monocytes # (Manual) Eosinophils # (Manual) Basophils # (Manual) Metamyelocytes # Myelocytes # Promyelocytes # Blast Cells # WBC Morphology Hypersegmented Neuts Hyposegmented Neuts Hypogranular Neuts Smudge Cells Toxic Granulation Toxic Vacuolation Dohle Bodies Pelger-Huet Anomaly Jaguar Rods Platelet Estimate Clumped Platelets Plt Clumps, EDTA Large Platelets Giant Platelets Platelet Satelliting Plt Morphology Comment RBC Morphology Dimorphic RBCs Polychromasia Hypochromasia Poikilocytosis Anisocytosis Microcytosis Macrocytosis Spherocytes Pappenheimer Bodies Sickle Cells Target Cells Tear Drop Cells Ovalocytes Helmet Cells [place] Bodies [place] Rings Cornelius Cells Bite Cells Crenated Cell Elliptocytes Acanthocytes (Spur) Rouleaux Hemoglobin C Crystals Schistocytes Malaria parasites Jesus Bodies Hem Pathologist Commnt PT INR APTT Fibrinogen POC ABG pH 7.410 POC ABG pCO2 33.9 L POC ABG pO2 132 H POC ABG HCO3 21.4 POC ABG Total CO2 22 POC ABG O2 Sat 99 POC ABG Base Excess -3 FiO2 70 Sodium Potassium Chloride Carbon Dioxide Anion Gap BUN Creatinine Estimated GFR BUN/Creatinine Ratio Glucose POC Glucose Calcium AST Blood Type Antibody Screen Crossmatch Assessment and Plan - Patient Problems (1) Acute blood loss anemia Current Visit: Yes Status: Acute Plan to address problem: The patient has received over 7 U of PRBC. D/w Dr Gupta and ICU nursing. She has received FFP and cryo ppt. She is on 3 pressors and her overall prognosis is very poor. The data on Kimberly 7 is unclear. Give 3 doses of Kimberly 7 and check Hb. Her CR is trending upward indicative of multiorgan failure. Informed consent obtained , risks explained.
[2017-02-14 15:42] LABS: Mean Corpuscular HGB Conc 33 % (30-34); Mean Corpuscular Hemoglobin 29 pg (28-32); Mean Corpuscular Volume 89 fl (79-97); Platelet Count 189 K/mm3 (140-440); Red Blood Count 1.62 M/mm3 (3.65-5.03); Red Cell Distribution Width 14.9 % (13.2-15.2); White Blood Count 14.9 K/mm3 (4.5-11.0)
[2017-02-14 15:47] LABS: Hematocrit 14.5 % (30.3-42.9); Hemoglobin 4.8 gm/dl (10.1-14.3)
--- NOTE | 2017-02-14 15:49 | Progress Note ---
Subjective Date of service: 02/14/17 Principal diagnosis: s/p hysterectomyafter vaginal delivery Interval history: Patient seen in ICU, intubated, s/p embolization, non-responsive, on 3 vasopressors, H/H this am 3.3/10; another taken at 1530, waitning transfer to another hospital for CCRT. Objective - Constitutional Vitals: Vital Signs - 12hr 02/14/17 02/14/17 02/14/17 04:00 04:16 04:30 Temperature Pulse Rate 159 H 156 H 158 H Respiratory 38 H 31 H 35 H Rate Blood Pressure 120/44 93/30 93/30 O2 Sat by Pulse 92 79 L 79 L Oximetry 02/14/17 02/14/17 02/14/17 04:46 05:00 05:16 Temperature Pulse Rate 160 H 158 H 158 H Respiratory 34 H 34 H 34 H Rate Blood Pressure 93/30 93/30 93/30 O2 Sat by Pulse 89 Oximetry 02/14/17 02/14/17 02/14/17 05:30 05:46 06:00 Temperature Pulse Rate 159 H 159 H 161 H Respiratory 34 H 34 H 34 H Rate Blood Pressure 93/30 93/30 93/30 O2 Sat by Pulse 58 L 56 L Oximetry 02/14/17 02/14/17 02/14/17 06:16 06:30 06:46 Temperature Pulse Rate 159 H 156 H 157 H Respiratory 30 H 31 H 30 H Rate Blood Pressure 97/27 97/27 97/27 O2 Sat by Pulse 48 L 50 L Oximetry 02/14/17 02/14/17 02/14/17 07:00 07:16 07:30 Temperature Pulse Rate 155 H 159 H 163 H Respiratory 33 H 34 H 36 H Rate Blood Pressure 97/27 97/27 97/27 O2 Sat by Pulse 76 L 88 Oximetry 02/14/17 02/14/17 02/14/17 07:46 08:00 08:16 Temperature 102.6 F H Pulse Rate 162 H 158 H 159 H Respiratory 36 H 34 H 37 H Rate Blood Pressure 97/27 97/38 97/38 O2 Sat by Pulse 53 L 79 L 83 L Oximetry 02/14/17 02/14/17 02/14/17 08:30 08:46 09:00 Temperature Pulse Rate 160 H 161 H 157 H Respiratory 36 H 33 H 35 H Rate Blood Pressure 97/38 97/38 97/38 O2 Sat by Pulse 82 L 82 L 84 Oximetry 02/14/17 02/14/17 02/14/17 09:16 09:30 09:40 Temperature 98.9 F Pulse Rate 156 H 161 H 154 H Respiratory 36 H 37 H 38 H Rate Blood Pressure 97/38 97/38 96/44 O2 Sat by Pulse 82 L 80 L 88 Oximetry 02/14/17 02/14/17 02/14/17 09:46 10:00 10:10 Temperature 99 F Pulse Rate 159 H 156 H 150 H Respiratory 35 H 37 H 38 H Rate Blood Pressure 97/38 96/46 112/44 O2 Sat by Pulse 80 L 88 Oximetry 02/14/17 02/14/17 02/14/17 10:16 10:30 10:40 Temperature 98 F Pulse Rate 154 H 155 H 155 H Respiratory 37 H 37 H 38 H Rate Blood Pressure 96/46 96/46 119/47 O2 Sat by Pulse 83 L 89 Oximetry 02/14/17 02/14/17 02/14/17 10:46 10:55 11:00 Temperature 98 F Pulse Rate 155 H 155 H 150 H Respiratory 36 H 38 H 36 H Rate Blood Pressure 96/46 116/46 96/46 O2 Sat by Pulse 82 L 82 L Oximetry 02/14/17 02/14/17 02/14/17 11:10 11:16 11:30 Temperature 102 F H Pulse Rate 155 H 150 H 150 H Respiratory 33 H 38 H 38 H Rate Blood Pressure 112/44 96/46 96/46 O2 Sat by Pulse 84 81 L Oximetry 02/14/17 02/14/17 02/14/17 11:40 11:46 11:50 Temperature 102 F H Pulse Rate 157 H 146 H 150 H Respiratory 34 H 41 H Rate Blood Pressure 133/59 96/46 96/46 O2 Sat by Pulse 82 L 84 Oximetry 02/14/17 02/14/17 02/14/17 12:00 12:10 12:16 Temperature 101 F H Pulse Rate 154 H 155 H 159 H Respiratory 35 H 36 H 35 H Rate Blood Pressure 115/45 122/57 115/45 O2 Sat by Pulse 87 85 Oximetry 02/14/17 02/14/17 02/14/17 12:30 12:46 13:00 Temperature Pulse Rate 160 H 159 H 156 H Respiratory 34 H 37 H 34 H Rate Blood Pressure 115/45 115/45 115/45 O2 Sat by Pulse 86 83 L 83 L Oximetry 02/14/17 02/14/17 02/14/17 14:20 14:35 14:50 Temperature 101 F H 101 F H 100.8 F H Pulse Rate 161 H 160 H 160 H Respiratory 37 H 35 H 36 H Rate Blood Pressure 113/56 114/53 112/52 O2 Sat by Pulse 89 88 Oximetry - Labs CBC & Chem 7: 02/14/17 05:20 02/14/17 05:20 Labs: Abnormal lab results 02/12/17 02/13/17 02/13/17 Range/Units 23:50 12:27 18:57 WBC (4.5-11.0) K/mm3 RBC (3.65-5.03) M/mm3 Hgb (10.1-14.3) gm/dl Hct (30.3-42.9) % Plt Count (140-440) K/mm3 PT (12.2-14.9) Sec. INR (0.87-1.13) APTT (24.2-36.6) Sec. Fibrinogen (211-480) mg/dl POC ABG pH (7.35-7.45) POC ABG pCO2 (35-45) POC ABG pO2 (80-105) Sodium (137-145) mmol/L Chloride (98-107) mmol/L Carbon Dioxide (22-30) mmol/L BUN (7-17) mg/dL Creatinine (0.7-1.2) mg/dL Glucose (65-100) mg/dL POC Glucose 356 H 392 H (70-105) Calcium (8.4-10.2) mg/dL Crossmatch See Detail 02/13/17 02/14/17 02/14/17 Range/Units 21:27 02:58 05:20 WBC 12.0 H (4.5-11.0) K/mm3 RBC 1.12 L (3.65-5.03) M/mm3 Hgb 3.3 L* (10.1-14.3) gm/dl Hct 10.0 L* (30.3-42.9) % Plt Count 49 L D (140-440) K/mm3 PT (12.2-14.9) Sec. INR (0.87-1.13) APTT (24.2-36.6) Sec. Fibrinogen (211-480) mg/dl POC ABG pH (7.35-7.45) POC ABG pCO2 (35-45) POC ABG pO2 (80-105) Sodium (137-145) mmol/L Chloride (98-107) mmol/L Carbon Dioxide (22-30) mmol/L BUN (7-17) mg/dL Creatinine (0.7-1.2) mg/dL Glucose (65-100) mg/dL POC Glucose 287 H 219 H (70-105) Calcium (8.4-10.2) mg/dL Crossmatch 02/14/17 02/14/17 02/14/17 Range/Units 05:20 05:20 05:22 WBC (4.5-11.0) K/mm3 RBC (3.65-5.03) M/mm3 Hgb (10.1-14.3) gm/dl Hct (30.3-42.9) % Plt Count (140-440) K/mm3 PT 26.9 H (12.2-14.9) Sec. INR 2.32 H (0.87-1.13) APTT 71.0 H* (24.2-36.6) Sec. Fibrinogen 117 L (211-480) mg/dl POC ABG pH 7.519 H (7.35-7.45) POC ABG pCO2 23.8 L (35-45) POC ABG pO2 146 H (80-105) Sodium 152 H (137-145) mmol/L Chloride 97.9 L (98-107) mmol/L Carbon Dioxide 17 L (22-30) mmol/L BUN 21 H (7-17) mg/dL Creatinine 2.9 H D (0.7-1.2) mg/dL Glucose 158 H (65-100) mg/dL POC Glucose (70-105) Calcium 5.8 L* D (8.4-10.2) mg/dL Crossmatch 02/14/17 02/14/17 Range/Units 06:03 14:25 WBC (4.5-11.0) K/mm3 RBC (3.65-5.03) M/mm3 Hgb (10.1-14.3) gm/dl Hct (30.3-42.9) % Plt Count (140-440) K/mm3 PT (12.2-14.9) Sec. INR (0.87-1.13) APTT (24.2-36.6) Sec. Fibrinogen (211-480) mg/dl POC ABG pH (7.35-7.45) POC ABG pCO2 33.9 L (35-45) POC ABG pO2 132 H (80-105) Sodium (137-145) mmol/L Chloride (98-107) mmol/L Carbon Dioxide (22-30) mmol/L BUN (7-17) mg/dL Creatinine (0.7-1.2) mg/dL Glucose (65-100) mg/dL POC Glucose 188 H (70-105) Calcium (8.4-10.2) mg/dL Crossmatch
[2017-02-14 15:55] LABS: INR 1.33 (0.87-1.13)
[2017-02-14 15:56] LABS: Partial Thromboplastin Time 54.6 Sec. (24.2-36.6)
--- NOTE | 2017-02-14 16:27 | Progress Note ---
Assessment and Plan Assessment and plan: 36 Y/o lady admitted history of diabetes mellitus admitted with ruptured membranes of clear liquid fluids on 02/12 and proceeded to have normal spontaneous vaginal delivery on 02/13 and subsequently developed DIC with post hemorrhage s/p surgery for total abdominal hysterectomy with findings of enlarged uterus enlarged left ovarian mass and vascular embolization of bilateral internal iliac arteries to stop bleeding, hypovolemic shock, acute respiratory failure requiring intubation. Unresponsive on 3 pressors since yesterday.. Patient has received multiple bouts of packed red blood cells to a few minutes to be exact also FFP and prior precipitate. Amount and multiorgan failure. Majority of history is from previous documentation. She is currently on norepinephrine, neosynephrine, doapmine, vasopressin and epinephrine at maximum doses remains hypotensive. Multiorgan failure Acute blood loss anemia Acute respiratory failure with hypoxemia DIC hemorrhage status post total abdominal hysterectomy Hemorrhagic shock Possible Aspiration Pneumonia Anion Metabolic acidosis Acute Encephalopathy Acute Kidney injury secondary to vasomotor nephropathy due to underlying clinical condition Severe Sepsis Plan: Continue supportive care as outlined. Discussed with phlebotomy technologist, Rotary Soil Stabilizer, Agreed on Transfer [facility] that can support CLUB MANAGER due to 3 pressors and multiorgan failure Consult placed to ID Blood clutures, lactate, VAP bundle Started on Vancomycin and Zosyn Consulted, Hematology Discussed with DR Cortez at [facility]. Patient accepted to her service. BRAKE LINING FINISHER ASBESTOS team at our facility notifed. Family updated Poor prognosis. The high probability of a clinically significant, sudden or life threatening deterioration of the [pulmonary, renal, cardiac, hematology, ] system(s) required my full and direct attention, intervention and personal management. The aggregate critical care time was [75] minutes. This time is in addition to time spent performing reported procedures but includes the following: [x] Data Review and interpretation [x] Patient assessment and monitoring of vital signs [x] Documentation [x] Medication orders and management History Interval history: Patient seen and examined, unresponsive on the vent, no sedation. Nursing staff reports multiple transfusion. Continues on Multiple pressors and full ventilatory support. Hospitalist Physical - Physical exam Narrative exam: VITAL SIGNS: Reviewed. GENERAL: Comatose and intubated, anasarca. Vital signs as documented. HEAD: No signs of head trauma. EYES: Pupils are equal. Sclerae active crepitus noted EARS: Unable to assess MOUTH: Oropharynx is normal. NECK: No adenopathy, no JVD. CHEST: Chest with decreased breath sounds bilaterally. CARDIAC: Sinus tachycardia, without murmurs, gallops, or rubs. VASCULAR: 1+ Edema generalized. Peripheral pulses normal and equal in all extremities. ABDOMEN: Severely distended surgical dressing in place serosanguineous drainage noted. Unable to appreciate bowel sounds. Tense MUSCULOSKELETAL: Extremities without clubbing, cyanosis NEUROLOGIC EXAM: Comatose SKIN: Surgical dressing in place left femoral and right IJ line is in place, Lisa catheter - Constitutional Vitals: Temp Pulse Resp BP Pulse Ox 100.1 F H 157 H 36 H 112/44 92 02/14/17 16:00 02/14/17 16:00 02/14/17 16:00 02/14/17 16:00 02/14/17 16:00 General appearance: Present: mild distress, severe distress, well-nourished Results - Labs CBC & Chem 7: 02/14/17 15:15 02/14/17 05:20 Labs: Laboratory Last Values WBC 14.9 K/mm3 (4.5-11.0) H 02/14/17 15:15 RBC 1.62 M/mm3 (3.65-5.03) L 02/14/17 15:15 Hgb 4.8 gm/dl (10.1-14.3) L* 02/14/17 15:15 Hct 14.5 % (30.3-42.9) L* 02/14/17 15:15 MCV 89 fl (79-97) 02/14/17 15:15 MCH 29 pg (28-32) 02/14/17 15:15 MCHC 33 % (30-34) 02/14/17 15:15 RDW 14.9 % (13.2-15.2) 02/14/17 15:15 Plt Count 189 K/mm3 (140-440) D 02/14/17 15:15 Lymph % (Auto) 18.9 % (13.4-35.0) 02/12/17 23:50 [place] % (Auto) 8.1 % (0.0-7.3) H 02/12/17 23:50 Eos % (Auto) 1.8 % (0.0-4.3) 02/12/17 23:50 Baso % (Auto) 0.3 % (0.0-1.8) 02/12/17 23:50 Lymph # Chemists 02/13/17 08:30 [place] # 0.9 K/mm3 (0.0-0.8) H 02/12/17 23:50 Eos # 0.2 K/mm3 (0.0-0.4) 02/12/17 23:50 Baso # 0.0 K/mm3 (0.0-0.1) 02/12/17 23:50 Add Manual Diff Complete 02/13/17 14:15 Total Counted 100 02/13/17 14:15 Seg Neutrophils % 70.9 % (40.0-70.0) H 02/12/17 23:50 Seg Neuts % (Manual) 48.0 % (40.0-70.0) 02/13/17 14:15 Band Neutrophils % 27.0 % 02/13/17 14:15 Lymphocytes % (Manual) 15.0 % (13.4-35.0) 02/13/17 14:15 Reactive Lymphs % (Man) 0 % 02/13/17 14:15 Monocytes % (Manual) 6.0 % (0.0-7.3) 02/13/17 14:15 Eosinophils % (Manual) 0 % (0.0-4.3) 02/13/17 14:15 Basophils % (Manual) 0 % (0.0-1.8) 02/13/17 14:15 Metamyelocytes % 4.0 % 02/13/17 14:15 Myelocytes % 0 % 02/13/17 14:15 Promyelocytes % 0 % 02/13/17 14:15 Blast Cells % 0 % 02/13/17 14:15 Nucleated RBC % 9.0 % (0.0-0.9) H 02/13/17 14:15 Seg Neutrophils # 8.3 K/mm3 (1.8-7.7) H 02/12/17 23:50 Seg Neutrophils # Man 3.2 K/mm3 (1.8-7.7) 02/13/17 14:15 Band Neutrophils # 1.8 K/mm3 02/13/17 14:15 Lymphocytes # (Manual) 1.0 K/mm3 (1.2-5.4) L 02/13/17 14:15 Abs React Lymphs (Man) 0.0 K/mm3 02/13/17 14:15 Monocytes # (Manual) 0.4 K/mm3 (0.0-0.8) 02/13/17 14:15 Eosinophils # (Manual) 0.0 K/mm3 (0.0-0.4) 02/13/17 14:15 Basophils # (Manual) 0.0 K/mm3 (0.0-0.1) 02/13/17 14:15 Metamyelocytes # 0.3 K/mm3 02/13/17 14:15 Myelocytes # 0.0 K/mm3 02/13/17 14:15 Promyelocytes # 0.0 K/mm3 02/13/17 14:15 Blast Cells # 0.0 K/mm3 02/13/17 14:15 WBC Morphology Not Reportable 02/13/17 14:15 Hypersegmented Neuts Not Reportable 02/13/17 14:15 Hyposegmented Neuts Not Reportable 02/13/17 14:15 Hypogranular Neuts Not Reportable 02/13/17 14:15 Smudge Cells Not Reportable 02/13/17 14:15 Toxic Granulation Not Reportable 02/13/17 14:15 Toxic Vacuolation Not Reportable 02/13/17 14:15 Dohle Bodies Not Reportable 02/13/17 14:15 Pelger-Huet Anomaly Not Reportable 02/13/17 14:15 Jaguar Rods Not Reportable 02/13/17 14:15 Platelet Estimate Consistent w auto 02/13/17 14:15 Clumped Platelets Not Reportable 02/13/17 14:15 Plt Clumps, EDTA Not Reportable 02/13/17 14:15 Large Platelets Not Reportable 02/13/17 14:15 Giant Platelets Not Reportable 02/13/17 14:15 Platelet Satelliting Not Reportable 02/13/17 14:15 Plt Morphology Comment Not Reportable 02/13/17 14:15 RBC Morphology Not Reportable 02/13/17 14:15 Dimorphic RBCs Not Reportable 02/13/17 14:15 Polychromasia Not Reportable 02/13/17 14:15 Hypochromasia 1+ 02/13/17 14:15 Poikilocytosis 1+ 02/13/17 14:15 Anisocytosis 1+ 02/13/17 14:15 Microcytosis Not Reportable 02/13/17 14:15 Macrocytosis Not Reportable 02/13/17 14:15 Spherocytes Not Reportable 02/13/17 14:15 Pappenheimer Bodies Not Reportable 02/13/17 14:15 Sickle Cells Not Reportable 02/13/17 14:15 Target Cells Not Reportable 02/13/17 14:15 Tear Drop Cells Not Reportable 02/13/17 14:15 Ovalocytes Not Reportable 02/13/17 14:15 Helmet Cells Not Reportable 02/13/17 14:15 [place] Bodies Not Reportable 02/13/17 14:15 [place] Rings Not Reportable 02/13/17 14:15 [place]kan Cells Not Reportable 02/13/17 14:15 Bite Cells Not Reportable 02/13/17 14:15 Crenated Cell Not Reportable 02/13/17 14:15 Elliptocytes Not Reportable 02/13/17 14:15 Acanthocytes (Spur) Not Reportable 02/13/17 14:15 Rouleaux Not Reportable 02/13/17 14:15 Hemoglobin C Crystals Not Reportable 02/13/17 14:15 Schistocytes Not Reportable 02/13/17 14:15 Malaria parasites Not Reportable 02/13/17 14:15 Jesus Bodies Not Reportable 02/13/17 14:15 Hem Pathologist Commnt No 02/13/17 14:15 PT 17.2 Sec. (12.2-14.9) H 02/14/17 15:15 INR 1.33 (0.87-1.13) H 02/14/17 15:15 APTT 54.6 Sec. (24.2-36.6) H 02/14/17 15:15 Fibrinogen 190 mg/dl (211-480) L 02/14/17 15:15 POC ABG pH 7.410 (7.35-7.45) 02/14/17 14:25 POC ABG pCO2 33.9 (35-45) L 02/14/17 14:25 POC ABG pO2 132 (80-105) H 02/14/17 14:25 POC ABG HCO3 21.4 02/14/17 14:25 POC ABG Total CO2 22 02/14/17 14:25 POC ABG O2 Sat 99 02/14/17 14:25 POC ABG Base Excess -3 02/14/17 14:25 FiO2 70 % 02/14/17 14:25 Sodium 152 mmol/L (137-145) H 02/14/17 05:20 Potassium 3.6 mmol/L (3.6-5.0) 02/14/17 05:20 Chloride 97.9 mmol/L (98-107) L 02/14/17 05:20 Carbon Dioxide 17 mmol/L (22-30) L 02/14/17 05:20 Anion Gap 41 mmol/L 02/14/17 05:20 BUN 21 mg/dL (7-17) H 02/14/17 05:20 Creatinine 2.9 mg/dL (0.7-1.2) H D 02/14/17 05:20 Estimated GFR 18 ml/min 02/14/17 05:20 BUN/Creatinine Ratio 7 % 02/14/17 05:20 Glucose 158 mg/dL (65-100) H 02/14/17 05:20 POC Glucose 188 (70-105) H 02/14/17 06:03 Lactic Acid 21.40 mmol/L (0.7-2.0) H* 02/14/17 15:15 Calcium 5.8 mg/dL (8.4-10.2) L* D 02/14/17 05:20 Total Bilirubin 2.00 mg/dL (0.1-1.2) H 02/13/17 14:15 AST 95 units/L (5-40) H 02/13/17 14:15 ALT 52 units/L (7-56) 02/13/17 14:15 Alkaline Phosphatase 56 units/L (35-129) 02/13/17 14:15 C-Reactive Protein 6.50 mg/dL (0.00-1.30) H 02/14/17 15:15 Total Protein 3.2 g/dL (6.3-8.2) L 02/13/17 14:15 Albumin 2.8 g/dL (3.9-5) L 02/13/17 14:15 Albumin/Globulin Ratio 7.0 % 02/13/17 14:15 RPR Nonreactive (Nonreactive) 02/12/17 23:50 Blood Type B POSITIVE 02/12/17 23:50 Antibody Screen Negative 02/12/17 23:50 Crossmatch See Detail 02/12/17 23:50
[2017-02-14] MEDS ORDERED: ZOSYN/NS 2.25 GM/50ML 2.25 GM/50 ML BAG IV SCH (18:00)
[2017-02-14 18:27] VITALS: BP 100/43
--- NOTE | 2017-02-26 02:34 | Discharge Summary ---
Providers - Providers Date of Admission: 02/12/17 23:27 Date of discharge: 02/14/17 Attending physician: YAO MORALES MD 02/13/17 10:25 Consult to Physician [CONS] Urgent Consulting Provider: SUNIL MENDOZA Reason For Exam: critical care management Place consult to:: Notified:: yes Was contact made?: Yes If yes, spoke with:: Time called:: 10:27 02/13/17 13:08 Consult to Physician [CONS] Urgent Consulting Provider: AISHA PIPER Reason For Exam: medical management Place consult to:: Notified:: yes Phone number called:: [phone] Was contact made?: Yes If yes, spoke with:: Time called:: 13:09 02/13/17 15:03 Consult to Physician [CONS] Stat Consulting Provider: ABAD GONSALES Reason For Exam: DIC Place consult to:: Office Notified:: Dr Gonsales Was contact made?: Yes If yes, spoke with:: Dr Gonsales Time called:: 15:11 02/14/17 08:36 Consult to Physician [CONS] Routine Consulting Provider: ROXANA BAKER Reason For Exam: DIC, possible spesis Place consult to:: Dr. Jimenez Notified:: yes Time called:: 09:06 02/14/17 08:37 Consult to Physician [CONS] Routine Consulting Provider: SALLIE NAVARRO Reason For Exam: DIC Place consult to:: Answering service Notified:: yes If yes, spoke with:: luzmaria Time called:: 08:58 02/14/17 08:41 Consult to Physician [CONS] Stat Consulting Provider: SALLIE NAVARRO Reason For Exam: DIC Place consult to:: Office Notified:: Answering service Phone number called:: [phone] Was contact made?: Yes If yes, spoke with:: Annia Time called:: 08:42 02/14/17 11:40 Consult to Physician [CONS] Stat Consulting Provider: OPAL RASHID Reason For Exam: renal management Place consult to:: Notified:: yes Phone number called:: na Was contact made?: Yes If yes, spoke with:: Time called:: 11:45 Primary care physician: KIARRA BAER MD Hospitalization Reason for admission: active labor, IUP at term Delivery: Procedure: other (Post delivery Total abdominal hysterectomy with Left salpingoOophorectomy) Episiotomy: none Incision: intact Discharge diagnosis: IUP at term delivered, other (Acute respiratory failure; DIC) baby: male Hospital course: Pt is a 36yo AF admitted history of diabetes mellitus admitted with ruptured membranes of clear liquid fluids on 02/12 and proceeded to have normal spontaneous vaginal delivery on 02/13 and subsequently developed DIC with post hemorrhage. She was s/p surgery for total abdominal hysterectomy with findings of enlarged uterus enlarged left ovarian mass and vascular embolization of bilateral internal iliac arteries to stop bleeding, hypovolemic shock, acute respiratory failure requiring intubation. Unresponsive on 3 pressors. Patient has received multiple bouts of packed red blood cells to a few minutes to be exact also FFP and cryoprecipitate. She has multiorgan failure. Majority of history is from previous documentation. She is currently on norepinephrine, neosynephrine, doapmine, vasopressin and epinephrine at maximum doses remains hypotensive, and will be transferred to [facility]. Multiorgan failure Acute blood loss anemia Acute respiratory failure with hypoxemia DIC hemorrhage status post total abdominal hysterectomy Hemorrhagic shock Possible Aspiration Pneumonia Anion Metabolic acidosis Acute Encephalopathy Acute Kidney injury secondary to vasomotor nephropathy due to underlying clinical condition Severe Sepsis Plan: Continue supportive care as outlined. Discussed with tool builder, Bilingual Administrative Assistant, Agreed on Transfer to [facility] that can support PHOTO TECHNICIAN due to 3 pressors and multiorgan failure Consult placed to ID Blood clutures, lactate, VAP bundle Started on Vancomycin and Zosyn Consulted, Hematology Discussed with DR Cortez at [facility]. Patient accepted to her service. BOX TRUCK OWNER OPERATOR team at our facility notifed. Family updated Poor prognosis. Condition at discharge: Serious Disposition: [id number]/[place]-70 ANOTHER TYPE HLTHCARE - Discharge Diagnoses (1) 37 weeks gestation of Status: Resolved (2) GDM (gestational diabetes mellitus) Status: Chronic Qualifiers: Gestational diabetes mellitus control: oral hypoglycemic-controlled Trimester: third trimester Qualified Code(s): O24.415 - Gestational diabetes mellitus in , controlled by oral hypoglycemic drugs (3) GDM (gestational diabetes mellitus), class A1 Status: Chronic Plan - Provider Discharge Summary Activity: routine Additional instructions: [] Smoking cessation referral if applicable(refer to patient education folder for contact #) [] Refer to [facility]'s [facility] Booklet Call your doctor immediately for: * Fever > 100.5 * Heavy vaginal bleeding ( >1 pad per hour) * Severe persistent headache * Shortness of breath * Reddened, hot, painful area to leg or breast * Drainage or odor from incision. * Keep incision clean and dry at all times and follow doctor's instructions regarding bathing/showering - Follow up plan Follow up: KIARRA BAER MD [Primary Care Provider] - 7 Days
== END 2017-02-14 17:45 | disposition still patient (30) | DRG 767 ==
LOC: TRG 23:18 → LD 23:27 → CC1 02-13 07:48
PROVIDERS: ADMIT Obstetrics & Gynecology; ATTEND Internal Medicine
PROC: 0UT90ZZ Resection of Uterus, Open Approach (ICD-10-PCS; principal; 2017-02-13)
PROC: 0UT60ZZ Resection of Left Fallopian Tube, Open Approach (ICD-10-PCS; 2017-02-13)
PROC: 0UT10ZZ Resection of Left Ovary, Open Approach (ICD-10-PCS; 2017-02-13)
PROC: 04LF4DZ Occlusion of Left Internal Iliac Artery with Intraluminal Device, Percutaneous Endoscopic Approach (ICD-10-PCS; 2017-02-13)
PROC: 04LE4DZ Occlusion of Right Internal Iliac Artery with Intraluminal Device, Percutaneous Endoscopic Approach (ICD-10-PCS; 2017-02-13)
PROC: 10E0XZZ Delivery of Products of Conception, External Approach (ICD-10-PCS; 2017-02-13)
PROC: 0W8NXZZ Division of Female Perineum, External Approach (ICD-10-PCS; 2017-02-13)
PROC: 30233K1 Transfusion of Nonautologous Frozen Plasma into Peripheral Vein, Percutaneous Approach (ICD-10-PCS; 2017-02-13)
PROC: 30233N1 Transfusion of Nonautologous Red Blood Cells into Peripheral Vein, Percutaneous Approach (ICD-10-PCS; 2017-02-13)
PROC: 5A1945Z Respiratory Ventilation, 24-96 Consecutive Hours (ICD-10-PCS; 2017-02-13)
PROC: 0KQM0ZZ Repair Perineum Muscle, Open Approach (ICD-10-PCS; 2017-02-13)
PROC: 30233L1 Transfusion of Nonautologous Fresh Plasma into Peripheral Vein, Percutaneous Approach (ICD-10-PCS; 2017-02-13)
PROC: 4A03XR1 Measurement of Arterial Saturation, Peripheral, External Approach (ICD-10-PCS; 2017-02-13)
PROC: 0BH17EZ Insertion of Endotracheal Airway into Trachea, Via Natural or Artificial Opening (ICD-10-PCS; 2017-02-13)
PROC: 30233R1 Transfusion of Nonautologous Platelets into Peripheral Vein, Percutaneous Approach (ICD-10-PCS; 2017-02-13)
PROC: 3E0234Z Introduction of Serum, Toxoid and Vaccine into Muscle, Percutaneous Approach (ICD-10-PCS; 2017-02-14)
DX: O24.429 Gestational diabetes mellitus in childbirth, unspecified control (principal); G93.40 Encephalopathy, unspecified; J96.01 Acute respiratory failure with hypoxia; D65 Disseminated intravascular coagulation [defibrination syndrome]; R57.1 Hypovolemic shock; O90.4 Postpartum acute kidney failure; O85 Puerperal sepsis; R65.20 Severe sepsis without septic shock; N17.0 Acute kidney failure with tubular necrosis; O72.1 Other immediate postpartum hemorrhage; D62 Acute posthemorrhagic anemia; E87.0 Hyperosmolality and hypernatremia; O76 Abnormality in fetal heart rate and rhythm complicating labor and delivery; Z3A.37 37 weeks gestation of pregnancy; Z37.0 Single live birth; Z83.3 Family history of diabetes mellitus; Z80.9 Family history of malignant neoplasm, unspecified; Z82.3 Family history of stroke; O70.1 Second degree perineal laceration during delivery; O90.89 Other complications of the puerperium, not elsewhere classified; O89 Complications of anesthesia during the puerperium
CPT/HCPCS: 36415; 36600; 37244; 71010; 75630; 80048; 80053; 82140; 82803; 82962; 85007; 85014; 85018; 85025; 85027; 85384; 85610; 85730; 86140; 86592; 86850; 86900; 86901; 86920; 88307; 90707; 94003; A4649; C1765; C1769; C1894; C9250; J0171; J0290; J0330; J0610; J0690; J1265; J1450; J1644; J1815; J2210; J2250; J2310; J2370; J2543; J2590; J2597; J2765; J3010; J3370; J3430; J7030; J7040; J7050; J7070; J7120; J7189; P9012; P9016; P9017; P9035; P9045; P9047; Q9967